=== PATIENT | female | born 1940 | race Caucasian/White ===

== ENCOUNTER 2016-11-23 10:22 | Emergency (ER) | payer OTHER ==
[2016-11-23 10:28] VITALS: TEMP 98; BMI 29.0
--- NOTE | 2016-11-23 11:39 | PDOC ---
History of Present Illness - General History Source: Patient, Old Records Exam Limitations: No Limitations <Odessa Samayoa - Last Filed: 11/23/16 15:17> - History of Present Illness Initial Comments: 11/23/16 12:43 Patient is a 76 year old female significant medical hx of HTN and nephrolithiasis who is presenting to the ED with left lower extremity pain since yesterday. Patient reports shes been doing a lot of bending and lifting due to home renovations. She complains of leg pain located to the posterior knee and calf that is non-radiating. The patient states that her pain worsened when she got up to walk in the middle of the night and since has had difficulty walking on her left leg. The patient's pain relieves at rest. Patient denies history of blood clots. Denies chest pain, shortness of breath, and lower extremity swelling. <Sarah Monson - Last Filed: 11/23/16 15:30> - General Chief Complaint: Pain Stated Complaint: PAIN Time Seen by Provider: 11/23/16 10:37 Past History - Past Medical History Anemia: No Asthma: No Cancer: No Cardiac Disorders: No CVA: No COPD: No CHF: No Dementia: No Diabetes: No GI Disorders: No Disorders: Yes (H/O KIDNEY STONES) HTN: Yes Hypercholesterolemia: No Liver Disease: No Seizures: No Thyroid Disease: No - Surgical History Abdominal Surgery: No Appendectomy: No Cardiac Surgery: No Cholecystectomy: No Lung Surgery: No Neurologic Surgery: No Orthopedic Surgery: No - Psycho/Social/Smoking Cessation Hx Suicidal Ideation: No Smoking History: Never smoked Have you smoked in the past 12 months: No Information on smoking cessation initiated: No Hx Alcohol Use: No Drug/Substance Use Hx: No Substance Use Type: None Hx Substance Use Treatment: No <Odessa Samayoa - Last Filed: 11/23/16 15:17> <Sarah Monson - Last Filed: 11/23/16 15:30> - Past Medical History Allergies/Adverse Reactions: Allergies Allergy/AdvReac Type Severity Reaction Status Date / Time Penicillins Allergy Intermediate Rash Verified 03/22/15 12:54 Home Medications: Ambulatory Orders Diltiazem Cd [Cardizem Cd -] 240 mg PO DAILY 12/20/14 Review of Systems - Review of Systems Comments:: 11/23/16 12:45 GENERAL/CONSTITUTIONAL: No fever or chills. No weakness. HEAD, EYES, EARS, NOSE AND THROAT: No change in vision. No ear pain or discharge. No sore throat. CARDIOVASCULAR: No chest pain or shortness of breath. RESPIRATORY: No cough, wheezing, or hemoptysis. GASTROINTESTINAL: No nausea, vomiting, diarrhea or constipation. GENITOURINARY: No dysuria, frequency, or change in urination. MUSCULOSKELETAL: No joint or muscle swelling or pain. No neck or back pain. EXTREMITIES: Posterior left leg pain. No edema. SKIN: No rash NEUROLOGIC: No headache, vertigo, loss of consciousness, or change in strength/ sensation. <Sarah Monson - Last Filed: 11/23/16 15:30> *Physical Exam - Vital Signs Last Vital Signs Temp Pulse Resp BP Pulse Ox 98 F 80 18 157/75 98 11/23/16 10:27 11/23/16 10:27 11/23/16 10:11/23/16 10:27 11/23/16 10:27 <Odessa Samayoa - Last Filed: 11/23/16 15:17> - Vital Signs Last Vital Signs Temp Pulse Resp BP Pulse Ox 98 F 80 18 157/75 98 11/23/16 10:27 11/23/16 10:27 11/23/16 10:27 11/23/16 10:11/23/16 10:27 - Physical Exam Comments: 11/23/16 12:45 GENERAL: Awake, alert, and fully oriented, in no acute distress HEAD: No signs of trauma EYES: PERRLA, EOMI, sclera anicteric, conjunctiva clear ENT: Auricles normal inspection, hearing grossly normal, nares patent, oropharynx clear without exudates. Moist mucosa NECK: Normal ROM, supple, no lymphadenopathy, JVD, or masses LUNGS: Breath sounds equal, clear to auscultation bilaterally. No wheezes, and no crackles HEART: Regular rate and rhythm, normal S1 and S2, no murmurs, rubs or gallops ABDOMEN: Soft, nontender, normoactive bowel sounds. No guarding, no rebound. No masses EXTREMITIES: Tenderness of the lateral aspect left calf posterior calf, with no gross bony deformities. Normal range of motion, no edema. No clubbing or cyanosis. No cords or erythema NEUROLOGICAL: Cranial nerves II through XII grossly intact. Normal speech, normal gait SKIN: Warm, Dry, normal turgor, no rashes or lesions noted. ENDOCRINE: No increased thirst. No abnormal weight change. HEMATOLOGIC/LYMPHATIC: No anemia, easy bleeding, or history of blood clots. ALLERGIC/IMMUNOLOGIC: No hives or skin allergy. <Sarah Monson - Last Filed: 11/23/16 15:30> ED Treatment Course - RADIOLOGY Radiograph Interpretation: 11/23/16 12:49 Vascular Study Impression: No evidence of acute DVT. Reported By: Antonio Valles MD 11/23/16 15:24 Tibia/Fibula X-Ray AP and lateral views reveal extensive calcaneal spurring, other degenerative changes about the fifth ankle and foot, no sign of a gross fracture or subluxation and intact mortise. The proximal tibia and fibula are seen on the knee films and appear intact with degenerative changes. In the lateral view, there is posterior calcification by the fibula which most likely is vascular. Correlation recommended. If symptoms persist, further imaging and orthopedic consultation may be of help. Reported By: Sidney Hoffman MD Knee X-Ray Impression: Loss of bone density. Degenerative changes. Vascular calcifications. Reported By: Sidney Hoffman MD <Sarah Monson - Last Filed: 11/23/16 15:30> Medical Decision Making - Medical Decision Making 11/23/16 12:07 76-year-old female with history of hypertension who presents to the emergency department with 2 day history of progressively worsening left calf pain. Differential diagnosis includes but is not limited to: DVT, Bailey's cyst, arthritis, tendinitis. Plan: 1. Left lower extremity ultrasound/duplex 2. Pain management 3. Observe and reevaluate 11/23/16 15:17 Addendum: The lower extremity ultrasound is negative for DVT. Plain films of the knee and the tib-fib are negative for acute fracture. There are vascular calcifications. I've explained the results of all of the studies to the patient. I've advised the patient to apply ice to the area that hurts and take Tylenol or Motrin as needed for the pain. I've also advised the patient to follow-up with her primary care physician and return to the emergency department if her symptoms persist, worsen, or new symptoms arise. <Odessa Samayoa - Last Filed: 11/23/16 15:17> *DC/Admit/Observation/Transfer - Discharge Dispostion Admit: No - Attestations Physician Attestion: 11/23/16 12:07 I, Dr. Odessa Samayoa, attest that the scribes documentation that appears above has been prepared under my direction and personally reviewed by me in its entirety. I confirmed that the note above accurately reflects all work, treatment, procedures, and medical decision-making performed by me. <Odessa Samayoa - Last Filed: 11/23/16 15:17> - Attestations Scribe Attestion: 11/23/16 12:49 Documentation prepared by Sarah Monson, acting as medical accountant for Odessa Samayoa MD. <Sarah Monson - Last Filed: 11/23/16 15:30> Diagnosis at time of Disposition: Leg pain, posterior - Discharge Dispostion Disposition: HOME Condition at time of disposition: Stable - Referrals Referrals: María Elena Torres MD [Primary Care Provider] - - Patient Instructions Printed Discharge Instructions: DI for Leg Pain Additional Instructions: You have had an ultrasound of your left lower extremity that was negative for blood clot. You have had plain films of your left knee and left tibia/fibula which were negative for acute fracture. You may take Tylenol or Motrin as needed for the pain. Please follow-up with your primary care physician within the next week and return to the emergency department if your symptoms persist, worsen, or new symptoms arise.
[2016-11-23] MEDS ORDERED: IBUPROFEN 400 MG TABLET (FP) PO ONE ×2 (12:08→12:23)
[2016-11-23 15:44] VITALS: BP 151/78; PULSE 71
== END 2016-11-23 15:44 | disposition home or self-care (01) ==
LOC: JER 10:22
DX: M79.662 Pain in left lower leg (principal); I10 Essential (primary) hypertension; N20.0 Calculus of kidney; M77.32 Calcaneal spur, left foot
CPT/HCPCS: 73560-TC-LT; 73590-TC-LT; 93971-TC; 99282-25

== ENCOUNTER 2017-04-04 16:23 | Emergency (ER) | payer OTHER ==
--- NOTE | 2017-04-04 16:25 | PDOC ---
History of Present Illness - General History Source: Patient Exam Limitations: No Limitations - History of Present Illness Initial Comments: 04/04/17 16:44 Patient is a 77 year old female significant medical hx of HTN, nephrolithiasis, and osteoarthritis in the both knees, who is presenting to the ED with sudden onset of left non-radiating knee pain. Patient describes knee pain as sharp. She states she is unable to put any weight on it without experiencing the pain, but denies any pain when her leg is at rest. She denies numbness/tingling to the knee. She states she had 800 mg of ibuprofen earlier today with little to no alleviation. Patient denies any trauma. Patient denies fever, chills, nausea, vomiting, diarrhea. Patient is ambulatory and walked in to the ED today without any assistance. <Aren Jimenez - Last Filed: 04/04/17 16:48> - General History Source: Patient Exam Limitations: No Limitations <Imelda Cook - Last Filed: 04/04/17 18:01> - General Chief Complaint: Pain Stated Complaint: LEFT KNEE PAIN Time Seen by Provider: 04/04/17 16:24 Past History <Aren Jimenez - Last Filed: 04/04/17 16:48> - Past Medical History Anemia: No Asthma: No Cancer: No Cardiac Disorders: No CVA: No COPD: No CHF: No Dementia: No Diabetes: No GI Disorders: No Disorders: Yes (H/O KIDNEY STONES) HTN: Yes Hypercholesterolemia: No Liver Disease: No Seizures: No Thyroid Disease: No - Surgical History Abdominal Surgery: No Appendectomy: No Cardiac Surgery: No Cholecystectomy: No Lung Surgery: No Neurologic Surgery: No Orthopedic Surgery: No - Psycho/Social/Smoking Cessation Hx Suicidal Ideation: No Smoking History: Never smoked Have you smoked in the past 12 months: No Hx Alcohol Use: No Drug/Substance Use Hx: No Substance Use Type: None Hx Substance Use Treatment: No <Imelda Cook - Last Filed: 04/04/17 18:01> - Past Medical History Allergies/Adverse Reactions: Allergies Allergy/AdvReac Type Severity Reaction Status Date / Time Penicillins Allergy Intermediate Rash Verified 04/04/17 16:38 Home Medications: Ambulatory Orders Diltiazem Cd [Cardizem Cd -] 240 mg PO DAILY 12/20/14 Ibuprofen 800 mg PO TID PRN 04/04/17 Lidocaine 5% Patch [Lidoderm Patch -] 1 patch TP DAILY PRN #30 patch 04/04/17 Tramadol HCl [Ultram] 25 mg PO Q8H PRN #15 tablet MDD 1.5 04/04/17 Review of Systems - Review of Systems Able to Perform ROS?: Yes Comments:: 04/04/17 16:44 GENERAL/CONSTITUTIONAL: No: fever, chills, weakness, loss of appetite. HEAD, EYES, EARS, NOSE AND THROAT: No: change in vision, ear pain, discharge, sore throat, throat swelling. CARDIOVASCULAR: No: chest pain, lightheadedness, palpitations, syncope RESPIRATORY: No: cough, shortness of breath, wheezing, hemoptysis, stridor. GASTROINTESTINAL: No: nausea, vomiting, abdominal cramping, diarrhea, rectal bleeding, constipation. GENITOURINARY: No: dysuria, hematuria, frequency, urgency, flank pain. MUSCULOSKELETAL: + left knee pain. No: back pain, neck pain, muscle swelling or pain SKIN AND BREASTS: No: lesions, pallor, rash or easy bruising. NEUROLOGIC: No: headache, vertigo, paresthesias, weakness ENDOCRINE: No: unexplained weight gain or loss HEMATOLOGIC/LYMPHATIC: No: anemia, easy bleeding, swelling nodes <Aren Jimenez - Last Filed: 04/04/17 16:48> *Physical Exam - Vital Signs Last Vital Signs Temp Pulse Resp BP Pulse Ox 98.1 F 78 16 186/79 99 04/04/17 16:24 04/04/17 16:24 04/04/17 16:24 04/04/17 16:24 04/04/17 16:24 - Physical Exam Comments: 04/04/17 16:44 GENERAL: The patient is in no acute distress. HEAD: Normal with no signs of trauma. EYES: PERRLA, EOMI, sclera anicteric, conjunctiva clear. ENT: Ears normal, nares patent, oropharynx clear without exudates. Moist mucous membranes. NECK: Normal range of motion, supple without lymphadenopathy, JVD, or masses. LUNGS: Breath sounds equal, clear to auscultation bilaterally. No wheezes, and no crackles. HEART:Regular rate and rhythm, normal S1 and S2 without murmur, rub or gallop. ABDOMEN: Soft, nontender, normoactive bowel sounds. No guarding, no rebound. EXTREMITIES: Normal range of motion, no edema. No clubbing or cyanosis. No erythema, or tenderness. NEUROLOGICAL: Cranial nerves II through XII grossly intact. Normal speech. No focal neurological deficits. MUSCULOSKELETAL: Back non-tender to palpation, no CVA tenderness SKIN: Warm, Dry, normal turgor, no rashes or lesions noted. <Aren Jimenez - Last Filed: 04/04/17 16:48> Medical Decision Making - Medical Decision Making 04/04/17 16:25 A portion of this note was documented by scribe services under my direction. I have reviewed the details of the note, within reason, and agree with the documentation with the following case summary and management plan written by me. Nursing documentation reviewed and incorporated into medical decision making 04/04/17 17:22 This is a 77 yo F h/o HTN, Osteoarthritis who presents to the ER with a complaint of left knee pain She noticed that as she went up and down the stairs in her home, she noted knee pain Today, she noted severe left knee pain when she climbed up the stairs No falls No direct knee trauma No erythema Minimal swelling of the left knee 04/04/17 17:54 Pt is concerned that there might be a subtle fracture Will do x ray 04/04/17 17:55 Pt does not want narcotic pain medications because they make her see strange things in dreams Knee x ray demonstrates severe arthritis No acute fracture seen Will: Discharge to home ask pt to follow up with Dr Kohler (she has an appointment on Friday already) Will discharge on m Will ask pt to take only 1/2 of this tab every 8 hours as needed for pain Clinical Impression: Severe arthritis <Imelda Cook - Last Filed: 04/04/17 18:01> *DC/Admit/Observation/Transfer - Attestations Scribe Attestion: 04/04/17 16:44 Documentation prepared by Aren Jimenez, acting as ophthalmic medical assistant for Imelda Cook MD. <Aren Jimenez - Last Filed: 04/04/17 16:48> - Discharge Dispostion Admit: No <Imelda Cook - Last Filed: 04/04/17 18:01> Diagnosis at time of Disposition: Arthritis of knee, left - Discharge Dispostion Disposition: HOME Condition at time of disposition: Stable - Prescriptions Prescriptions: Lidocaine 5% Patch [Lidoderm Patch -] 1 patch TP DAILY PRN #30 patch PRN Reason: Pain Tramadol HCl [Ultram] 25 mg PO Q8H PRN #15 tablet MDD 1.5 PRN Reason: Pain - Referrals Referrals: María Elena Torres MD [Primary Care Provider] - Rehan Kohler MD [Staff Physician] - - Patient Instructions Printed Discharge Instructions: DI for Arthritis, Osteoarthritis (Alternative Therapy) Additional Instructions: Thank you for coming in to the ER today Please take medications as prescribed and monitor for confusion/vivid dreams Please keep your follow up with Dr Kohler Return to the ER if you have any other concerns or complaints
[2017-04-04 16:42] VITALS: PULSE 78; TEMP 98.1; BMI 26.6
[2017-04-04 17:01] VITALS: BP 192/76
== END 2017-04-04 18:34 | disposition home or self-care (01) ==
LOC: FER 16:23
DX: M17.12 Unilateral primary osteoarthritis, left knee (principal); I10 Essential (primary) hypertension
CPT/HCPCS: 73562-TC-LT; 99282-25

== ENCOUNTER 2017-07-04 09:21 | Day surgery (SDC) | payer OTHER ==
[2017-07-03 16:44] VITALS: BMI 27.4
[2017-07-04] MEDS ORDERED: ROPIVACAINE HCL 0.5% 30ML VIAL ONE (13:06)
[2017-07-04] MEDS ORDERED: DEXAMETHASONE SOD PHOSPHATE/PF 10 MG/ML SDV ONE (13:07)
[2017-07-04] MEDS ORDERED: MIDAZOLAM HCL 2 MG/2 ML SINGLE DOSE VIAL ONE (13:08)
[2017-07-04] MEDS ORDERED: LIDOCAINE HCL/PF 2% SDV 5ML VIAL ONE (13:08)
[2017-07-04] MEDS ORDERED: PROPOFOL 20 ML ONE ×2 (14:05→14:42)
[2017-07-04] MEDS ORDERED: CLINDAMYCIN 600 MG PREMIX BAG IVPB ONE (14:40)
[2017-07-04] MEDS ORDERED: LIDOCAINE HCL 1%, 10 MG/ML (20ML VIAL) INF ONE (14:59)
[2017-07-04] MEDS ORDERED: ONDANSETRON 4 MG/2 ML VIAL IVPUSH PRN (15:25)
[2017-07-04] MEDS ORDERED: oxyCODONE HCL 5 MG TABLET PO PRN (15:25)
[2017-07-04] MEDS ORDERED: LACTATED RINGERS SOLUTION 1,000 ML IV SCH (15:30)
[2017-07-04] MEDS ORDERED: ACETAMINOPHEN 325 MG TABLET (FP) ONE (16:36)
[2017-07-04] MEDS ORDERED: ACETAMINOPHEN 325 MG TABLET (FP) PO ONE (17:13)
[2017-07-04 19:01] VITALS: BP 150/90; PULSE 67
[2017-07-04 20:22] VITALS: TEMP 97.6
--- NOTE | 2017-07-05 19:23 | OP ---
DATE OF OPERATION: 07/04/2017 PREOPERATIVE DIAGNOSIS: Left breast cancer. POSTOPERATIVE DIAGNOSIS: Left breast cancer. PROCEDURE: Left breast lumpectomy and a sentinel lymph node biopsy with primary reconstruction. SURGEON: Karen Bean MD ANESTHESIA: Paravertebral block and general. ESTIMATED BLOOD LOSS: Minimal. COMPLICATIONS: None. DISPOSITION: Stable end of procedure. INDICATION FOR PROCEDURE: Patient presented with a palpable mass in the outer left breast. Mammogram and ultrasound showed a solid, irregular mass. She had a nasal biopsy to the 2 areas in the upper outer left breast, which showed an invasive carcinoma. It was ER/[place] positive. My recommendation was a lumpectomy. In the office, mastectomy was discussed as well. After discussion, decision was to go ahead with a lumpectomy and a sentinel node biopsy. The procedure was discussed with all of the questions answered. PROCEDURE IN DETAIL: The patient was brought to [facility] in [place] and first taken to nuclear medicine where a technetium and sulfur colloid was injected at the 2 o'clock areolar border by the radiologist. She was then brought up to the operating room. After a paravertebral block was done by the anesthesiologist in holding, she was taken into the operating room. After IV sedation and IV antibiotic, 4 mL of Isosulfan blue dye was injected into the left subaerolar plexus. The breast was then massaged for 5 minutes. The breast and axilla were then reprepped and redraped. A 4-cm incision was made in the left axilla, and I felt she could feel this; therefore, I am not sure the block was perfect. Therefore, this was converted to general anesthesia. A 4-cm incision was made in the left axilla and carried down to the clavipectoral fascia to identify a hot and blue sentinel node, which was sentinel node number 1 hot and blue. On further exploration of the left axilla, there was another lymph node that felt firm, and I took this as a left axillary nonsentinel node as there was no blue dye radioactivity within this. There was a 2nd sentinel node and a 3rd sentinel node as well that were hot and not blue in the left axilla. These were taken separately. There was no other blue dye radioactivity or pathologic feeling lymph nodes in the left axilla; therefore, next the left breast lumpectomy was performed. An ellipse of skin was taken over the mass that encompassed the left breast from the 2 o'clock to the 4 o'clock location from superior to inferior and the from the areolar border out approximately 8 cm to get the margins. An en bloc lumpectomy was performed tagged with a long stitch lateral, short stitch superior. Sent to pathology for permanent section. Grossly, I felt that was close medially; therefore, I took a new medial margin with a stitch at the old margin. This was all sent to Pathology for permanent section. Once hemostasis was assured, there was a large defect left from the lumpectomy. Therefore, a superior inferomedial flap was raised, and a tissue transfer procedure was performed to fill in the defect from the lumpectomy. This defect measured 12 cm by 6 cm. The parenchyma was approximated in 2 layers of interrupted 2-0 Vicryl, the skin approximated with interrupted 3-0 Vicryl and running 4-0 Prolene. The axillary incision was also closed in a routine fashion with interrupted 0 Vicryl and running 4-0 Prolene. A sterile dressing with Tegaderm and 4x4 was applied as well as a mammary binder. She tolerated the procedure well and was taken to recovery in good condition. Jen [id number] [id number]
--- NOTE | 2017-07-09 16:06 | PATH ---
Surgical Pathology Report Patient Name: SINCERE SIMMS [facility]. Rec. #: [id number] /Age/Gender: 1940 (Age: 77) / F Account: [id number] Location: [facility] SURGICAL Taken: 07/04/2017 Received: 07/07/2017 Reported: 07/09/2017 Physicians: Karen Bean M.D. Specimen(s) Received A: LEFT AXILLARY SENTINEL LYMPH NODE B: LEFT AXILLARY NON-SENTINEL NODE C: LEFT AXILLARY SENTINEL LYMPH NODE D: LEFT AXILLARY SENTINEL LYMPH NODE E: LEFT BREAST LUMPECTOMY F: LEFT BREAST NEW MDEDIAL MARGIN Clinical History Invasive Final Diagnosis A. SENTINEL LYMPH NODE #1, LEFT AXILLARY, BIOPSY: ONE OF TWO LYMPH NODES POSITIVE FOR METASTATIC CARCINOMA (1/2); LYMPHATIC EMBOLI PRESENT. SIZE OF THE LARGEST TUMOR DEPOSIT: 0.7 CM. EXTRANODAL EXTENSIONS: PRESENT. Comment: Immunohistochemical stain for Ae1/Ae2 keratin performed and interpreted as [facility] on block A3 highlights endolymphatic carcinoma. B. NON-SENTINEL LYMPH NODES, LEFT AXILLARY, LYMPHADENECTOMY: ONE OF FOUR LYMPH NODES POSITIVE FOR METASTATIC CARCINOMA (1/4); LYMPHATIC EMBOLI PRESENT. SIZE OF THE LARGEST TUMOR DEPOSIT: 0.7 CM. EXTRANODAL EXTENSIONS: PRESENT. C. SENTINEL LYMPH NODE #2, LEFT AXILLARY, BIOPSY: ONE LYMPH NODE NEGATIVE FOR METASTATIC CARCINOMA BY H&E STAIN (0/1). D. SENTINEL LYMPH NODE #3, LEFT AXILLARY, BIOPSY: ONE LYMPH NODE NEGATIVE FOR METASTATIC CARCINOMA BY H&E STAIN (0/1). E. BREAST, LEFT, LUMPECTOMY: INVASIVE DUCTAL CARCINOMA, MODERATELY DIFFERENTIATED, WITH FOCAL MICROPAPILLARY MUCINOUS FEATURES AND FOCAL AREA OF SOLID PAPILLARY CARCINOMA (MOE HISTOLOGIC SCORE OF 7: TUBULE FORMATION 3 OF 3, NUCLEAR PLEOMORPHISM 2 OF 2, MITOTIC RATE 2 OF 3). INVASIVE CARCINOMA SIZE AND FOCALITY: MAIN FOCUS, 2.8 CM (GROSS MEASUREMENT), ADDITIONAL 0.5 CM FOCUS, MICROINVASIVE SATELLITE FOCI (<1 MM) AND FOCI OF LYMPHATIC SPREAD. EXTENSIVE DUCTAL CARCINOMA IN SITU (DCIS), INTERMEDIATE NUCLEAR GRADE, SOLID AND PAPILLARY TYPES, WITH CENTRAL NECROSIS. DCIS EXTENT: DCIS IS MAJOR (>25%), PRESENT IN ASSOCIATION WITH INVASIVE CARCINOMA AND FOCALLY AWAY FROM IT. SURGICAL RESECTION MARGINS: DCIS ABUTS INFERIOR AND LATERAL RESECTION MARGINS, < 1MM FROM THE SUPERIOR MARGIN AND 1.5 MM FROM THE DEEP MARGIN; MARGINS ARE NEGATIVE FOR INVASIVE CARCINOMA; INVASIVE CARCINOMA IS 1 MM FROM THE MEDIAL ASPECT OF THE SPECIMEN (REFER TO PART F FOR THE FINAL MEDIAL MARGIN) AND 3 MM FROM THE LATERAL MARGIN. LYMPHOVASCULAR INVASION: PRESENT. PERINEURAL INVASION: NOT DEFINITIVELY IDENTIFIED. SKIN: NOT INVOLVED BY CARCINOMA. SURROUNDING BREAST TISSUE: FOCI OF FIBROCYSTIC CHANGE WITH DUCT DILATATION, FOCAL APOCRINE METAPLASIA AND STROMAL FIBROSIS. PATHOLOGIC STAGING: mpT2 pN1a (ALSO REFER TO CHECKLIST BELOW). RECEPTOR STUDIES: REFER TO CHECKLIST BELOW. F. BREAST, LEFT, NEW MEDIAL MARGIN, EXCISION: SMALL INTRADUCTAL PAPILLOMA WITH USUAL DUCTAL HYPERPLASIA; FIBROCYSTIC CHANGE WITH FOCAL USUAL DUCTAL HYPERPLASIA, APOCRINE METAPLASIA, DUCT DILATATION AND STROMAL FIBROSIS WITH FOCAL ASSOCIATED MICROCALCIFICATIONS. NEGATIVE FOR INVASIVE CARCINOMA OR DCIS. Comments Breast Invasive Carcinoma: Surgical Pathology Cancer Case Summary Based on AJCC/UICC TNM, 7th edition Procedure _x_ Excision without image-guided localization Lymph Node Sampling _x_ [place] and non-sentinel lymph nodes Specimen Laterality _x_ Left Tumor Size: Size of Largest Invasive Carcinoma Greatest dimension of largest focus of invasion over 1 mm: 2.8 cm (28 mm) Tumor Focality _x_ Multiple foci of invasive carcinoma Number of foci: >3 Sizes of individual foci: 2.8 cm, 0.5 cm, additional microinvasive satellite foci (<1mm) and foci of lymphatic spread Macroscopic and Microscopic Extent of Tumor Skin _x_ Invasive carcinoma does not invade into the dermis or epidermis Nipple _x_ Not applicable (excisions less than total mastectomy) Skeletal Muscle _x_ No skeletal muscle present Ductal Carcinoma In Situ (DCIS) _x_ DCIS is present _x_ as a major component (>25% of tumor, extensive intraductal component) Histologic Type of Invasive Carcinoma: Invasive ductal carcinoma with focal micropapillary mucinous features and focal area of solid papillary carcinoma Histologic Grade: ([place] Histologic Score) Tubular Differentiation _x_ Score 3 Nuclear Pleomorphism _x_ Score 2 Mitotic Rate _x_ Score 2 Overall Grade _x_ Grade 2: scores of 7 (moderately differentiated) Margins _x_ Margins uninvolved by invasive carcinoma Distance from closest margin: 3.0 mm Specify margin: lateral _x_ Margin(s) positive for DCIS: inferior and lateral _x_ Margin(s) close to (< 1 mm) DCIS: superior Lymph-Vascular Invasion _x_ Present Lymph Nodes Total number of lymph nodes examined (sentinel and nonsentinel): 8 Number of sentinel lymph nodes examined: 4 Number of lymph nodes with macrometastases (> 2 mm): 2 Number of lymph nodes with micrometastases (>0.2 mm to 2 mm and/or >200cells):0 Number of lymph nodes with isolated tumor cells (=0.2 mm and =200 cells): 0 Size of largest metastatic deposit (if present): 0.7 cm Extranodal Extension _x_ Present Pathologic Staging (pTNM) Primary Tumor (Invasive Carcinoma): mpT2 Regional Lymph Nodes (pN): pN1a Distant Metastasis (pM): not applicable Biomarker Studies Results of ER and KY studies performed on prior biopsy ([id number]) blocks A and B at [facility] are as follows: ER (clone [id number] mouse monoclonal antibody by [employer]): >95% nuclear staining with strong to moderate intensity (Positive). KY (clone16 mouse monoclonal antibody by [employer]):~75%(block A) and >90%(block B) nuclear staining with strong to moderate intensity (Positive). Results of Her2 (IHC) & Ki-67 studies performed on prior biopsy ([id number], blocks A and B) at [place], [place] ([id number]) are as follows: Her2 IHC (EP3 from [employer], formerly known as [id number], using [employer] Refine detection kit): 0 (Negative) Ki67: up to 10% (Low proliferative index) Positive and negative controls (internal if applicable) showed appropriate results. Formalin fixation and cold ischemic times were within current ASCO/CAP recommendations for ER, KY and Her2 testing. Electronically Signed Isaiah Grace M.D. Gross Description A. Received in formalin labeled "left axillary sentinel lymph node #1" is a 4.5 x 3.5 x 1.8 cm aggregate of yellow, lobulated adipose tissue. Sectioning reveals 2 guthrie, irregular lymph nodes measuring 0.9 x 0.6 x 0.5 cm and 2.8 x 1.4 x 0.6 cm. The lymph nodes are bisected and entirely submitted in 3 cassettes as follows: 1-one bisected lymph node; 2-3-one bisected lymph node. B. Received in formalin labeled "left axillary non-sentinel node" is a 4.5 x 2.5 x 1.0 cm aggregate of yellow, lobulated adipose tissue. Sectioning reveals 4 guthrie, irregular lymph nodes ranging from 0.5-1.0 cm in greatest dimension. The largest lymph node is bisected and the specimens are submitted in 4 cassettes as follows: 1-3-one whole lymph node each; 4-one bisected lymph node. C. Received in formalin labeled "left axillary sentinel lymph node #2" is a 1.0 x 0.5 x 0.4 cm guthrie, irregular lymph node with attached fat. The lymph node is bisected and entirely submitted in one cassette. D. Received in formalin labeled "left axillary sentinel lymph node #3" is a 1.2 x 0.4 x 0.3 cm guthrie, irregular lymph node with attached fat. The lymph node is submitted in toto in one cassette. E. Received in formalin, labeled "left breast lumpectomy" is a 8.0 x 6.2 x 4.7 cm. guthrie-yellow, irregular, portion of fibroadipose tissue. There is no needle localization wire present. There is a short suture marking the superior aspect and a long suture marking the lateral aspect, per the surgeon. The anterior surface displays an 8.0 x 2.2 cm guthrie, elliptical, unremarkable portion of skin. The specimen is inked as follows: Superior blue; inferior green; lateral red; medial yellow; deep black. The specimen is serially sectioned from medial to lateral. Sectioning reveals a 2.8 x 1.8 x 1.7 cm guthrie, indurated, ill-defined mass at 0.8 cm from the medial margin and 1.0 cm from the inferior margin. The mass is surrounded by a 3.8 cm in greatest dimension area of scattered guthrie-white firm foci which approach the inferior and lateral margins. [employer] sections are submitted in 13 cassettes as follows: 1-2-one bisected section of mass; 3-mass with inferior margin; 4-5-medial margin; 6-mass with surrounding scattered fibrous tissue; 7-4-ekzfywgktg inferior margin; 3-02-oskyshg margin; 11-superior margin; 12-deep margin; 13-skin. Time to fixation: <1h Total formalin fixation time:~ 74h F. Received in formalin labeled "left breast new medial margin" is a 4.5 x 1.5 x 1.6 cm irregular portion of fibroadipose tissue with a suture marking the old margin, per the surgeon. The new margin is inked blue and the specimen is serially sectioned. The specimen is entirely and sequentially submitted in 7 cassettes. 07/07/2017 [facility]07/07/2017
== END 2017-07-04 18:45 | disposition home or self-care (01) ==
LOC: JRADNM 09:21 → JASU-SURG 09:21
PROVIDERS: ATTEND Surgery
PROC: C71L1ZZ Planar Nuclear Medicine Imaging of Upper Chest Lymphatics using Technetium 99m (Tc-99m) (ICD-10-PCS; 2017-07-04)
PROC: 0HBU0ZZ Excision of Left Breast, Open Approach (ICD-10-PCS; principal; 2017-07-04 13:00)
PROC: 07B60ZX Excision of Left Axillary Lymphatic, Open Approach, Diagnostic (ICD-10-PCS; 2017-07-04 13:00)
DX: C50.912 Malignant neoplasm of unspecified site of left female breast (principal)
CPT/HCPCS: 88307-TC; 88342-TC; 94760; A9541

== ENCOUNTER 2017-07-29 11:26 | Day surgery (SDC) | payer OTHER ==
[2017-07-28 08:47] VITALS: BMI 27.4
[2017-07-29] MEDS ORDERED: MIDAZOLAM HCL 2 MG/2 ML SINGLE DOSE VIAL ONE (15:12)
[2017-07-29] MEDS ORDERED: PROPOFOL 20 ML ONE (15:12)
[2017-07-29] MEDS ORDERED: DEXAMETHASONE SOD PHOSPHATE 4 MG/1 ML VIAL ONE (15:12)
[2017-07-29] MEDS ORDERED: LIDOCAINE HCL 1%, 10 MG/ML (20ML VIAL) ONE (15:20)
[2017-07-29] MEDS ORDERED: ceFAZolin SODIUM 1 GM VIAL IVPB ONE (15:37)
[2017-07-29] MEDS ORDERED: LIDOCAINE HCL 1%, 10 MG/ML (20ML VIAL) INF ONE (15:40)
[2017-07-29] MEDS ORDERED: ceFAZolin SODIUM 1 GM VIAL ONE (15:47)
[2017-07-29 16:51] VITALS: TEMP 97.8
[2017-07-29] MEDS ORDERED: PROMETHAZINE HCL 25 MG/1 ML VIAL IVPUSH PRN (17:13)
[2017-07-29] MEDS ORDERED: ONDANSETRON 4 MG/2 ML VIAL IVPUSH PRN (17:13)
[2017-07-29] MEDS ORDERED: oxyCODONE HCL 5 MG TABLET PO PRN (17:13)
[2017-07-29] MEDS ORDERED: LACTATED RINGERS SOLUTION 1,000 ML IV SCH (17:15)
--- NOTE | 2017-07-29 17:19 | OP ---
DATE OF OPERATION: 07/29/2017 PREOPERATIVE DIAGNOSIS: Left breast cancer. POSTOPERATIVE DIAGNOSIS: Left breast cancer. PROCEDURE: Left breast re-excision lumpectomy. SURGEON: Karen Bean MD ANESTHESIA: General. ESTIMATED BLOOD LOSS: Minimal. COMPLICATIONS: None. This was a sterile procedure. INDICATION FOR PROCEDURE: Patient had a left lumpectomy and sentinel node biopsy. The lumpectomy showed 3 involved margins and 1 close margin on the DCIS, inferiorly, laterally, and superiorly. My recommendation was re-excision. The procedure was discussed with her, and all the questions answered. PROCEDURE IN DETAIL: Patient was brought to [facility] and taken into the operating room, and after induction of general anesthesia and IV antibiotics, the left breast was prepped and draped in the usual sterile fashion. The area in the outer left breast was anesthetized with 1% lidocaine without epinephrine. The prior incision was sharply reopened, and the lumpectomy cavity was entered. A new inferior margin was taken with a stitch at the new margin. Next, a new lateral margin was taken with a stitch at the old margin, and lastly, a new superior margin was taken with a stitch at the old margin. These were all sent to Pathology for permanent section. Hemostasis was assured with electrocautery. The parenchyma approximated with interrupted 2-0 Vicryl in 2 layers. The skin approximated with interrupted 0 Vicryl running, 4-0 Biosyn. A sterile dressing of a Tegaderm, 4 x 4's applied, as well as a mammary binder. The patient tolerated the procedure well, was extubated on the operating room table, taken to recovery in good condition. Jen [id number]
[2017-07-29 18:57] VITALS: BP 172/77; PULSE 67
--- NOTE | 2017-08-05 09:13 | PATH ---
Surgical Pathology Report Patient Name: SINCERE SIMMS [facility]. Rec. #: [id number] /Age/Gender: 1940 (Age: 77) / F Account: [id number] Location: [facility] SURGICAL Taken: 07/29/2017 Received: 07/30/2017 Reported: 08/05/2017 Physicians: Karen Bean M.D. Specimen(s) Received A: LEFT BREAST NEW INFERIOR MARGIN STITCH JENNIFER NEW MARGIN B: LEFT BREAST NEW LATERAL MARGIN STITCH MARLS OLD MARGIN C: LEFT BREAST NEW SUPERIOR MARGIN STITCH HULL OLD MARGIN Clinical History Invasive Final Diagnosis A. LEFT BREAST, NEW INFERIOR MARGIN, EXCISION: DUCTAL CARCINOMA IN SITU OF (DCIS), INTERMEDIATE NUCLEAR GRADE, SOLID PATTERN. DCIS MEASURES AT LEAST 5 MM IN GREATEST DIMENSION, AND IS PRESENT IN 3 OF 10 SUBMITTED BLOCKS (3/10). DCIS IS LESS THAN 1 MM FROM THE INKED MARGIN OF EXCISION. FAT NECROSIS, FIBROSIS, FOREIGN BODY REACTION, AND SUTURE GRANULOMA PRESENT CONSISTENT WITH PRIOR EXCISION SITE. REMAINING BREAST TISSUE WITH FIBROCYSTIC CHANGES INCLUDING COLUMNAR CELL CHANGE, STROMAL FIBROSIS, AND DUCTAL DILATATION. B. LEFT BREAST, NEW LATERAL MARGIN, EXCISION: DUCTAL CARCINOMA IN SITU OF (DCIS), INTERMEDIATE NUCLEAR GRADE, SOLID PATTERN. DCIS MEASURES AT LEAST 5 MM IN GREATEST DIMENSION, AND IS PRESENT IN 2 OF 13 SUBMITTED BLOCKS (2/13). DCIS IS LESS THAN 1 MM FROM THE INKED MARGIN OF EXCISION. FAT NECROSIS, FIBROSIS, FOREIGN BODY REACTION, AND SUTURE GRANULOMA PRESENT CONSISTENT WITH PRIOR EXCISION SITE. C. LEFT BREAST, NEW SUPERIOR MARGIN, EXCISION: DUCTAL CARCINOMA IN SITU OF (DCIS), INTERMEDIATE NUCLEAR GRADE, SOLID PATTERN. DCIS MEASURES 5 MM IN GREATEST DIMENSION, AND IS PRESENT IN ONE OF 8 SUBMITTED BLOCKS (1/8). DCIS IS 6 MM FROM THE INKED MARGIN OF EXCISION. FAT NECROSIS, FIBROSIS, FOREIGN BODY REACTION, AND SUTURE GRANULOMA PRESENT CONSISTENT WITH PRIOR EXCISION SITE. Comment: Also see prior specimens [id number] and [id number]. Electronically Signed Tucker Wang M.D. Gross Description A. Received in formalin labeled "left breast new inferior margin," is a 5.0 x 3.1 x 0.8 cm irregular, unoriented portion of fibroadipose tissue with a suture marking the new margin, per the surgeon. The new margin is inked blue and the specimen is serially sectioned. The specimen is entirely and sequentially submitted in 10 cassettes. B. Received in formalin labeled "left breast new lateral margin," is a 4.0 x 3.7 x 1.5 cm irregular portion of fibroadipose tissue with a suture marking the old margin, per the surgeon. The new margin is inked blue and the specimen is serially sectioned. The specimen is entirely and sequentially submitted in 13 cassettes (one bisected section each in cassettes 4/5, 6/7, 8/, 07/30). C. Received in formalin labeled "left breast new superior margin," is a 4.0 x 2.2 x 1.3 cm irregular portion of fibroadipose tissue with a suture marking the old margin, per the surgeon. The new margin is inked blue and the specimen is serially sectioned. The specimen is entirely and sequentially submitted in 8 cassettes. Time to formalin fixation: 1 minute Total formalin fixation time: Approximately 26 hours. 07/30/2017 [place]07/30/2017
== END 2017-07-29 18:57 | disposition home or self-care (01) ==
LOC: JASU-SURG 11:26
PROVIDERS: ATTEND Surgery
PROC: 0HBU0ZZ Excision of Left Breast, Open Approach (ICD-10-PCS; principal; 2017-07-29 13:00)
DX: C50.912 Malignant neoplasm of unspecified site of left female breast (principal)
CPT/HCPCS: 88307-TC; 94760

== ENCOUNTER 2018-01-19 23:26 | Observation (INO) | payer OTHER ==
--- NOTE | 2018-01-19 23:56 | PDOC ---
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 Patient reports gradual onset of intermittent midsternal chest pain, pressure like, radiating to the back with associated nausea. Despite pain, patient reports coming to work and experienced pain. Patient denies Patient denies palpitations, shortness of breath, diaphoresis, dizziness. Patient denies fever, chills, abdominal pain, vomit, diarrhea or constipation. Patient denies dysuria, frequency, urgency or hematuria. Patient denies sick contacts or recent travel. Allergies: Penicillins Past surgical history: Lumpectomy Social history: None PCP: Dr. Tien Castañeda Cards: Julian Ambrose <Madeleine Dewitt - Last Filed: 01/20/18 00:08> - General History Source: Patient Exam Limitations: No Limitations <Markel eBthea - Last Filed: 01/20/18 01:23> - General Stated Complaint: CHEST PAIN Time Seen by Provider: 01/19/18 23:30 Past History <Madeleine Dewitt - Last Filed: 01/20/18 00:08> - Past Medical History Anemia: No Asthma: No Cancer: No Cardiac Disorders: No CVA: No COPD: No CHF: No Dementia: No Diabetes: No GI Disorders: No Disorders: Yes (H/O KIDNEY STONES) HTN: Yes Hypercholesterolemia: No Liver Disease: No Seizures: No Thyroid Disease: No - Surgical History Abdominal Surgery: No Appendectomy: No Cardiac Surgery: No Cholecystectomy: No Lung Surgery: No Neurologic Surgery: No Orthopedic Surgery: No - Suicide/Smoking/Psychosocial Hx Smoking History: Never smoked Have you smoked in the past 12 months: No Hx Alcohol Use: No Drug/Substance Use Hx: No Substance Use Type: None Hx Substance Use Treatment: No <Markel Bethea - Last Filed: 01/20/18 01:23> - Past Medical History Allergies/Adverse Reactions: Allergies Allergy/AdvReac Type Severity Reaction Status Date / Time Penicillins Allergy Intermediate Rash Verified 07/29/17 12:09 "RESISTANT TO ASNESTHESIA" AdvReac Severe Uncoded 07/29/17 12:09 Home Medications: Ambulatory Orders Diltiazem Cd [Cardizem Cd -] 240 mg PO DAILY 12/20/14 Naproxen Sodium [Aleve] 220 mg PO PRN PRN 07/03/17 Review of Systems - Review of Systems Able to Perform ROS?: Yes Comments:: 01/19/18 23:57 GENERAL/CONSTITUTIONAL: No fever or chills. No weakness. HEAD, EYES, EARS, NOSE AND THROAT: No change in vision. No ear pain or discharge. No sore throat. CARDIOVASCULAR: +chest pain. No shortness of breath. RESPIRATORY: No cough, wheezing, or hemoptysis. GASTROINTESTINAL: +nausea. No vomiting, diarrhea or constipation. GENITOURINARY: No dysuria, frequency, or change in urination. MUSCULOSKELETAL: No joint or muscle swelling or pain. No neck or back pain. SKIN: No rash NEUROLOGIC: No headache, vertigo, loss of consciousness, or change in strength/ sensation. ENDOCRINE: No increased thirst. No abnormal weight change. HEMATOLOGIC/LYMPHATIC: No anemia, easy bleeding, or history of blood clots. ALLERGIC/IMMUNOLOGIC: No hives or skin allergy. <Madeleine Dewitt - Last Filed: 01/20/18 00:08> *Physical Exam - Physical Exam Comments: 01/19/18 23:58 GENERAL: Awake, alert, and fully oriented, in no acute distress HEAD: No signs of trauma EYES: PERRLA, EOMI, sclera anicteric, conjunctiva clear ENT: Auricles normal inspection, hearing grossly normal, nares patent, oropharynx clear without exudates. Moist mucosa NECK: Normal ROM, supple, no lymphadenopathy, JVD, or masses LUNGS: Breath sounds equal, clear to auscultation bilaterally. No wheezes, and no crackles HEART: +Systolic murmur. Regular rate and rhythm, normal S1 and S2, no rubs or gallops ABDOMEN: Soft, nontender, normoactive bowel sounds. No guarding, no rebound. No masses EXTREMITIES: Normal range of motion, no edema. No clubbing or cyanosis. No cords, erythema, or tenderness NEUROLOGICAL: Cranial nerves II through XII grossly intact. Normal speech, normal gait SKIN: Warm, Dry, normal turgor, no rashes or lesions noted. <Madeleine Dewitt - Last Filed: 01/20/18 00:08> Heart Score/ECG Review - History History: Moderately suspicious - Electrocardiogram EKG: Normal - Age Age: >/= 65 - Risk Factors Risk Factors Heart Score: Yes Hx Hypertension, Yes Hx Obesity Based on the list above the patient has:: 1-2 risk factors - Troponin Troponin: </= normal limit - Score Heart Score - Total: 4 #1 ECG reviewed & interpreted by me at: 23:55 01/20/18 00:53 NSR 77, no std/brandi, normal axis, normal intervals, QTC 437 msec <Markel Bethea - Last Filed: 01/20/18 01:23> ED Treatment Course - LABORATORY CBC & Chemistry Diagram: 01/19/18 23:50 01/19/18 23:50 <Madeleine Dewitt - Last Filed: 01/20/18 00:08> - LABORATORY CBC & Chemistry Diagram: 01/19/18 23:50 01/19/18 23:50 - RADIOLOGY Radiology Studies Ordered: Category Date Time Status CHEST X-RAY PORTABLE* [RAD] Stat Radiology 01/19/18 23:38 Ordered <Markel Bethea - Last Filed: 01/20/18 01:23> Medical Decision Making - Medical Decision Making 01/20/18 00:53 A portion of this note was documented by scribe services under my direction. I have reviewed the details of the note, within reason, and agree with the documentation with the following case summary and management plan written by me. Patient treated in the ED. Nursing notes are reviewed and incorporated into the medical decision-making. Vital signs reviewed. Peripheral IV access obtained by the nurse, laboratory studies are drawn and sent, reviewed and interpreted by myself. Vital Signs Temp Pulse Resp BP Pulse Ox 97.7 F 80 18 173/73 97 01/20/18 00:08 01/20/18 00:08 01/20/18 00:08 01/20/18 00:08 01/20/18 00:08 78-year-old female patient with history of hypertension, left-sided breast cancer status post lumpectomy in remission presents with chest pain. The patient reports that this morning she started feeling a vague midsternal chest pressure that radiated to the back. No fevers or chills. Denies shortness of breath. Denies exertional component. States that the pain has lasted throughout the day. She has an appointment for a routine outpatient stress test in 2 days. Patient's findings are concerning for rule out ID. The patient is minimal chest pain at this time. We'll obtain chest x-ray, labs and troponin admit the patient to the hospital. 01/20/18 01:22 CBC, BMP 01/19/18 23:50 01/19/18 23:50 CMP Sodium 138 mmol/L (136-145) 01/19/18 23:50 Potassium 3.9 mmol/L (3.5-5.1) 01/19/18 23:50 Chloride 104 mmol/L (98-107) 01/19/18 23:50 Carbon Dioxide 26 mmol/L (21-32) 01/19/18 23:50 Anion Gap 8 (8-16) 01/19/18 23:50 BUN 26 mg/dL (7-18) H 01/19/18 23:50 Creatinine 0.8 mg/dL (0.55-1.02) 01/19/18 23:50 Creat Clearance w eGFR > 60 (>60) 01/19/18 23:50 Random Glucose 111 mg/dL (74-106) H 01/19/18 23:50 Calcium 9.0 mg/dL (8.5-10.1) 01/19/18 23:50 Magnesium 1.9 mg/dL (1.8-2.4) 01/19/18 23:50 Total Bilirubin 0.4 mg/dL (0.2-1.0) 01/19/18 23:50 AST 10 U/L (15-37) L 01/19/18 23:50 ALT 14 U/L (12-78) 01/19/18 23:50 Alkaline Phosphatase 37 U/L (45-117) L 01/19/18 23:50 Creatine Kinase 34 IU/L (26-192) 01/19/18 23:50 Troponin I < 0.02 ng/ml (0.00-0.05) 01/19/18 23:50 Total Protein 7.3 g/dl (6.4-8.2) 01/19/18 23:50 Albumin 4.0 g/dl (3.4-5.0) 01/19/18 23:50 Lipase 121 U/L (73-393) 01/19/18 23:50 Chest xray reviewed by me, pending official radiology read. Enlarged heart. Pt reports that she had seen Dr. Garrison in the past. Will place consultation in for cardiology. Case discussed with Dr. servin who accepts patient for tele obs. Aspirin ordered. Case discussed in detail with admitting physician including history, physical exam and ancillary studies. Admitting physician has assumed care for the patient, will follow all pending diagnostics and will complete the evaluation and treatment. <Markel Bethea - Last Filed: 01/20/18 01:23> *DC/Admit/Observation/Transfer - Attestations Scribe Attestion: 01/19/18 23:58 Documentation prepared by Madeleine Dewitt, acting as biomedical scientist for Markel Bethea MD <Madeleine Dewitt - Last Filed: 01/20/18 00:08> - Discharge Dispostion Admit: Yes <Markel Bethea - Last Filed: 01/20/18 01:23> Diagnosis at time of Disposition: Chest pain Qualifiers: Chest pain type: unspecified Qualified Code(s): R07.9 - Chest pain, unspecified - Discharge Dispostion Condition at time of disposition: Stable - Referrals Referrals: Alfredo Krishnamurthy MD [Primary Care Provider] -
[2018-01-19 23:59] LABS: BASO % 0.7 % (0-2.0); EOS % 1.3 % (0-4.5); HEMATOCRIT 36.4 % (32.4-45.2); HEMOGLOBIN 12.7 GM/dL (10.7-15.3); LYMPH % 7.4 % (8-40); MCH 31.2 pg (25.7-33.7); MCHC 34.8 g/dl (32.0-36.0); MEAN CELL VOLUME 89.6 fl (80-96); MEAN PLT VOLUME 8.1 fl (7.5-11.1); MONO % 6.2 % (3.8-10.2); NEUT % 84.4 % (42.8-82.8); PLATELET COUNT 193 K/MM3 (134-434); RBC 4.06 M/mm3 (3.60-5.2); RDW 13.9 % (11.6-15.6); WHITE BLOOD COUNT 6.9 K/mm3 (4.0-10.0)
[2018-01-20 00:12] LABS: INR 1.06 (0.82-1.09)
[2018-01-20 00:14] LABS: ACTIVATED PTT 27.4 SECONDS (26.9-34.4)
[2018-01-20 00:30] LABS: ANION GAP 8 (8-16); BLOOD UREA NITROGEN 26 mg/dL (7-18); CHLORIDE 104 mmol/L (98-107); CO2 26 mmol/L (21-32); GLUCOSE,RANDOM 111 mg/dL (74-106); LIPASE 121 U/L (73-393); MAGNESIUM 1.9 mg/dL (1.8-2.4); POTASSIUM 3.9 mmol/L (3.5-5.1); SODIUM 138 mmol/L (136-145)
[2018-01-20 00:36] LABS: ALK PHOS 37 U/L (45-117); BILIRUBIN,TOTAL 0.4 mg/dL (0.2-1.0); CREATININE 0.8 mg/dL (0.55-1.02); SGOT/AST 10 U/L (15-37); SGPT/ALT 14 U/L (12-78); TOT PROT 7.3 g/dl (6.4-8.2)
[2018-01-20] MEDS ORDERED: ASPIRIN 81 MG CHEWABLE TABLETS PO ONE (01:16)
--- NOTE | 2018-01-20 01:21 | PN ---
Teaching Attending Note Name of Resident: Sidney Askew ATTENDING PHYSICIAN STATEMENT I saw and evaluated the patient. I reviewed the resident's note and discussed the case with the resident. I agree with the resident's findings and plan as documented. SUBJECTIVE: 78 F with Pmhx. of HTN, Breast CA s/p lumpectomy (on horomone therapy), Nephrolithiasis, OA, who presents with chest pain X2 days duration. As per patient Chest pain is substernal. Also with associated nausea. Also with associated chest pressure. No diaphoresis, fevers, or chills. Denies any radiation. Denies any chest pain or pressure currently. Denies any shortness of breath. OBJECTIVE: Physical: VS: Vital Signs Period Temp Pulse Resp BP Sys/Suggs Pulse Ox Last 24 Hr 97.7 F 80 18 173/73 97 GEN: NAD, Resting in bed, AA0X3 HEENT: NCAT, PERRL, Throat without erythema or exudates CARD: RRR S1, S2 RESP: CTAB ABD: BSx4, NTD to palpation EXT: +1 Pitting Edema Bilateral and Equal CBCD WBC 6.9 K/mm3 (4.0-10.0) 01/19/18 23:50 RBC 4.06 M/mm3 (3.60-5.2) 01/19/18 23:50 Hgb 12.7 GM/dL (10.7-15.3) 01/19/18 23:50 Hct 36.4 % (32.4-45.2) 01/19/18 23:50 MCV 89.6 fl (80-96) 01/19/18 23:50 MCHC 34.8 g/dl (32.0-36.0) 01/19/18 23:50 RDW 13.9 % (11.6-15.6) 01/19/18 23:50 Plt Count 193 K/MM3 (134-434) 01/19/18 23:50 MPV 8.1 fl (7.5-11.1) 01/19/18 23:50 CMP Sodium 138 mmol/L (136-145) 01/19/18 23:50 Potassium 3.9 mmol/L (3.5-5.1) 01/19/18 23:50 Chloride 104 mmol/L (98-107) 04/02/18 23:50 Carbon Dioxide 26 mmol/L (21-32) 01/19/18 23:50 Anion Gap 8 (8-16) 01/19/18 23:50 BUN 26 mg/dL (7-18) H 01/19/18 23:50 Creatinine 0.8 mg/dL (0.55-1.02) 01/19/18 23:50 Creat Clearance w eGFR > 60 (>60) 01/19/18 23:50 Random Glucose 111 mg/dL (74-106) H 01/19/18 23:50 Calcium 9.0 mg/dL (8.5-10.1) 01/19/18 23:50 Total Bilirubin 0.4 mg/dL (0.2-1.0) 01/19/18 23:50 AST 10 U/L (15-37) L 01/19/18 23:50 ALT 14 U/L (12-78) 01/19/18 23:50 Alkaline Phosphatase 37 U/L (45-117) L 01/19/18 23:50 Total Protein 7.3 g/dl (6.4-8.2) 01/19/18 23:50 Albumin 4.0 g/dl (3.4-5.0) 01/19/18 23:50 CARDIAC ENZYMES Creatine Kinase 34 IU/L (26-192) 01/19/18 23:50 Troponin I < 0.02 ng/ml (0.00-0.05) 01/19/18 23:50 EKG:NSR 77, QtC 437 CXR: Cardiomegaly Home Medications Medication Instructions Recorded Diltiazem Cd [Cardizem Cd -] 240 mg PO DAILY 12/20/14 Naproxen Sodium [Aleve] 220 mg PO PRN PRN 07/03/17 ASSESSMENT AND PLAN: 78 F with Pmhx. of HTN, Breast CA s/p lumpectomy (on horomone therapy), Nephrolithiasis, OA, who presents with chest pain X2 days, being admitted for ACS rule out. 1.) Chest Pain - HEART 4 - RO ACS - Asa - BB - 02 - Nitro/Morphine prn pain, if reoccurs - Cardio consult - Echo - Hx. of Radiation for breast ca- Lipid panel 2.) HTN - C/W home meds 3.) Hx. of Breast Ca - On Horomone Therapy - Unsure what med 4.) Dvt Ppx - Scds Place in Obs- Tele
[2018-01-20] MEDS ORDERED: ASPIRIN 81 MG CHEWABLE TABLETS ONE (01:30)
[2018-01-20] MEDS ORDERED: HEPARIN NA (PORCINE) 5,000 UNITS/ML 1ML VIAL SQ SCH (02:00)
[2018-01-20] MEDS ORDERED: METOPROLOL TARTRATE 25 MG TABLET (FP) PO ONE (02:04)
--- NOTE | 2018-01-20 02:12 | HP ---
CHIEF COMPLAINT: chest pain, hypertension PCP: Dr. Castañeda HISTORY OF PRESENT ILLNESS: 78 year old female with a history of afib (not on anticoagulation), hypertension , breast ca s/p 2x lumpectomy, nephrolithiasis, osteoarthritis presents to the ED for a 2 day history of chest pain. She states that the pain came on suddenly and felt like a tight pressure on the left side of her chest. The chest pain subsequently dissipated on its own and the patient went to work. She states that she measured her blood pressure at work and was told to go down to the emergency department. She has never had any chest pain like that before, never had any MIs or had any stenting. Patient states that her atrial fibrillation was diagnosed any years ago, that it was a one time episode and she was never put on anticoagulation therapy. Currently the patient denies any chest pain, shortness of breath, nausea, vomiting, diarrhea, fevers, chills, recent travel or any sick contacts. Her watch parts inspector is Dr. Navarro and she states that she had an appointment on Friday with him to get a stress test and echocardiogram performed. ER course was notable for: (1) negative troponin (2) EKG NSR, no ST changes, normal QTc (3) hypertensive 173/73 Recent Travel: none PAST MEDICAL HISTORY: afib (not on anticoagulation), hypertension, breast ca s/ p 2x lumpectomy, nephrolithiasis, osteoarthritis PAST SURGICAL HISTORY: 2x lumpectomy Social History: Smoking: never Alcohol: never Drugs: never Family History: hypertension in the father Allergies Penicillins Allergy (Intermediate, Verified 07/29/17 12:09) Rash "RESISTANT TO ASNESTHESIA" Adverse Reaction (Severe, Uncoded 07/29/17 12:09) WOKE UP DURING SURGERY HOME MEDICATIONS: Home Medications Medication Instructions Recorded Diltiazem Cd [Cardizem Cd -] 240 mg PO DAILY 12/20/14 Naproxen Sodium [Aleve] 220 mg PO PRN PRN 07/03/17 REVIEW OF SYSTEMS CONSTITUTIONAL: Absent: fever, chills, diaphoresis, generalized weakness, malaise, loss of appetite, weight change HEENT: Absent: rhinorrhea, nasal congestion, throat pain, throat swelling, difficulty swallowing, mouth swelling, ear pain, eye pain, visual changes CARDIOVASCULAR: Absent: chest pain, syncope, palpitations, irregular heart rate, lightheadedness , peripheral edema RESPIRATORY: Absent: cough, shortness of breath, dyspnea with exertion, orthopnea, wheezing, stridor, hemoptysis GASTROINTESTINAL: Absent: abdominal pain, abdominal distension, nausea, vomiting, diarrhea, constipation, melena, hematochezia GENITOURINARY: Absent: dysuria, frequency, urgency, hesitancy, hematuria, flank pain, genital pain MUSCULOSKELETAL: Absent: myalgia, arthralgia, joint swelling, back pain, neck pain SKIN: Absent: rash, itching, pallor HEMATOLOGIC/IMMUNOLOGIC: Absent: easy bleeding, easy bruising, lymphadenopathy, frequent infections ENDOCRINE: Absent: unexplained weight gain, unexplained weight loss, heat intolerance, cold intolerance NEUROLOGIC: Absent: headache, focal weakness or paresthesias, dizziness, unsteady gait, seizure, mental status changes, bladder or bowel incontinence PSYCHIATRIC: Absent: anxiety, depression, suicidal or homicidal ideation, hallucinations. PHYSICAL EXAMINATION Vital Signs - 24 hr 01/20/18 00:08 Temperature 97.7 F Pulse Rate 80 Respiratory 18 Rate Blood Pressure 173/73 O2 Sat by Pulse 97 Oximetry (%) GENERAL: A&Ox3, no acute distress EYES: PERRLA, EOMI ENT: Moist mucus membranes NECK: No JVD LUNGS: CTA, no wheezes HEART: RRR, 3/6 systolic murmur noted at the 2nd R intercostal space ABDOMEN: Soft, nontender, BS present MUSCULOSKELETAL: No CVA Tenderness EXTREMITIES: 2+ pulses, no edema. NEUROLOGICAL: Cranial nerves II-XII intact. Laboratory Results - last 24 hr 01/19/18 01/19/18 01/19/18 23:50 23:50 23:50 WBC 6.9 RBC 4.06 Hgb 12.7 Hct 36.4 MCV 89.6 MCH 31.2 MCHC 34.8 RDW 13.9 Plt Count 193 MPV 8.1 Neutrophils % 84.4 H Lymphocytes % 7.4 L D Monocytes % 6.2 Eosinophils % 1.3 Basophils % 0.7 PT with INR 12.00 H INR 1.06 PTT (Actin FS) 27.4 Sodium 138 Potassium 3.9 Chloride 104 Carbon Dioxide 26 Anion Gap 8 BUN 26 H Creatinine 0.8 Creat Clearance w eGFR > 60 Random Glucose 111 H Calcium 9.0 Magnesium 1.9 Total Bilirubin 0.4 AST 10 L ALT 14 Alkaline Phosphatase 37 L Creatine Kinase 34 Troponin I < 0.02 Total Protein 7.3 Albumin 4.0 Lipase 121 ASSESSMENT/PLAN: 78 yo F w/ a hx of afib (not on anticoagulation), HTN, breast CA s/p 2x lumpectomy, nephrolithiasis, osteoarthritis presents to the hospital for chest pain and is admitted for r/o ACS #Chest pain, Rule out ACS: patient is currently asymptomatic -cardiac monitoring now -received ASA in ED, continue 81 mg tomorrow -start metoprolol 25mg once daily -lipid profile ordered -echocardiogram ordered -cardiology consultation Dr. Navarro appreciated #Hypertension: patient was hypertensive at 173/73, she states that she is on diltiazem but describes a different dose than in the chart -recheck BP -start metoprolol 25mg once daily -need to confirm home medications in the AM (patient receives medications from [facility] ) #Osteoporosis: not an acute issue, patient is on a medication at home but cannot remember the name -confirm home meds and restart the medication patient takes for osteoporosis in the AM #Breast CA s/p lumpectomy: not an acute issue, patient was on hormonal therapy in the past -stopped taking the medications because she did not like how it made her feel #FEN -no standing fluids -replete lytes as necessary -sodium controlled diet #Prophylaxis -heparin 5000 subq tid #Disposition -admit to tele-obs Visit type - Emergency Visit Emergency Visit: Yes ED Registration Date: 01/20/18 Care time: The patient presented to the Emergency Department on the above date and was hospitalized for further evaluation of their emergent condition. - New Patient This patient is new to me today: Yes Date on this admission: 01/20/18 - Critical Care Critical Care patient: No Hospitalist Screening - Colonoscopy Questionnaire Colonoscopy Questionnaire: Colonoscopy Questionnaire - Patient: 50 - 75 years old and never had a screening colonoscopy: Unknown History of colon or rectal polyps, or CA: Unknown History of IBD, Crohn's disease or UC: Unknown History of abdominal radiation therapy as a child: Unknown - Relative: 1 with colon or rectal CA, or polyps at age 60 or younger: Unknown Colon or rectal CA diagnosed at age 45 or younger: Unknown Multiple relatives with colon or rectal CA: Unknown - Outcome: Screening Result: Negative Screen
[2018-01-20] MEDS ORDERED: METOPROLOL TARTRATE 25 MG TABLET (FP) ONE (02:44)
[2018-01-20] MEDS ORDERED: NITROFURANTOIN MACROCRYSTAL 50 MG CAPSULE (FP) ONE (03:28)
[2018-01-20 05:37] VITALS: BMI 29.6
[2018-01-20 08:16] LABS: HEMATOCRIT 34.6 % (32.4-45.2); HEMOGLOBIN 12.1 GM/dL (10.7-15.3); MCH 31.2 pg (25.7-33.7); MCHC 34.9 g/dl (32.0-36.0); MEAN CELL VOLUME 89.3 fl (80-96); MEAN PLT VOLUME 8.2 fl (7.5-11.1); PLATELET COUNT 170 K/MM3 (134-434); RBC 3.88 M/mm3 (3.60-5.2); RDW 13.3 % (11.6-15.6); WHITE BLOOD COUNT 5.2 K/mm3 (4.0-10.0)
[2018-01-20 08:40] LABS: CHLORIDE 107 mmol/L (98-107); POTASSIUM 3.7 mmol/L (3.5-5.1); SODIUM 141 mmol/L (136-145)
--- NOTE | 2018-01-20 08:51 | PN ---
Progress Note (short form) - Note Progress Note: Chief Complaint: Events noted, notes reviewed, chest pain, new onset, denies any dyspnea History of Present Illness: Seen and examined on telemetry. Full consult dictated Medications: Current Medications Aspirin (Asa -) 81 mg PO DAILY KEELEY Review of Systems - Review of Systems Constitutional: denies: Chills, Fever Cardiovascular: As noted above Respiratory: denies: Cough or sputum Production Gastrointestinal: denies: Nausea, Vomiting, Diarrhea, Constipation or Abdominal Pain Musculoskeletal: reports: Joint Pain/right Hip pain Neurological: denies: Dizziness or Headaches Vital Signs: Last Vital Signs Temp Pulse Resp BP Pulse Ox 97.5 F L 54 L 18 167/71 96 01/20/18 06:00 01/20/18 06:00 01/20/18 06:00 01/20/18 06:00 01/20/18 04:05 Intake & Output 01/17/18 01/18/18 01/19/18 01/20/18 23:59 23:59 23:59 23:59 Intake Total 10 Balance 10 Weight 183 lb 9.6 oz Neck: Supple Negative JVD no bruit appreciated Respiratory: Clear to A&P Bilaterally Cardiovascular: S1-S2 Regular Rate and Rhythm Grade 2/6 SALIMA Gastrointestinal: Soft Benign Normal Bowel Sounds Ext: No Edema Intact Distal Pulses Labs: Troponin, BNP 01/19/18 23:50 Troponin I < 0.02 CBC, BMP 01/20/18 06:00 01/20/18 06:00 Hepatic Panel Total Bilirubin 0.4 mg/dL (0.2-1.0) 01/19/18 23:50 AST 10 U/L (15-37) L 01/19/18 23:50 ALT 14 U/L (12-78) 01/19/18 23:50 Alkaline Phosphatase 37 U/L (45-117) L 01/19/18 23:50 Albumin 4.0 g/dl (3.4-5.0) 01/19/18 23:50 INR, PTT INR 1.06 (0.82-1.09) 01/19/18 23:50 Assessment/Plan ASSESSMENT: 1. Chest pain syndrome atypical for CAD angina pectoris but to be excluded 2. Diastolic LV dysfunction with class 0 NYHA classification LV failure 3. Heart murmur most likely related to AV sclerosis, AV stenosis to be excluded 4. Remote history of paroxysmal atrial fibrillation [id number] score of 5, currently on no A/C therapy 5. Hypertension 6. Hypercholesterolemia 7. History of Breast carcinoma 8. Advanced degenerative joint disease PLAN: 1. Add B-Blockers 2. Continue Cardizem CD 3. Continue ASA 4. Add statins 5. Echocardiography to evaluate LV size and function and the above noted heart murmur 6. If repeat cardiac biochemical markers are negative and patient is pain free on medical therapy can be D/C home for further evaluation including outpatient MPI study Discussed in detail with the patient Omid Jordan MD
[2018-01-20 09:01] LABS: ANION GAP 7 (8-16); BLOOD UREA NITROGEN 20 mg/dL (7-18); CALCIUM 8.5 mg/dL (8.5-10.1); CHOLESTEROL 239 mg/dL (50-200); CO2 27 mmol/L (21-32); CREATININE 0.6 mg/dL (0.55-1.02); GLUCOSE,RANDOM 98 mg/dL (74-106); HDL CHOLESTEROL 65 mg/dL (40-60); LDL CHOLESTEROL (ONLY SJRH) 153 mg/dL (5-100); MAGNESIUM 1.9 mg/dL (1.8-2.4); PHOSPHOROUS 3.9 mg/dL (2.5-4.9); TRIGLYCERIDES 106 mg/dL (35-160)
[2018-01-20] MEDS ORDERED: ASPIRIN 81 MG CHEWABLE TABLETS PO SCH (10:00)
--- NOTE | 2018-01-20 10:01 | CONS ---
DATE OF CONSULTATION: 01/20/2018 REQUESTED BY: Hospitalist. CHIEF COMPLAINT: Chest pain. A 78-year-old female with known history of probable diastolic left ventricular dysfunction with class 0 [place] [employer] classification of left ventricular failure. Remote history of paroxysmal atrial fibrillation. CHADS-2 VASc score of 5, currently on no anticoagulation therapy. Hypertensive cardiovascular disease, hypercholesterolemia, breast carcinoma post lumpectomy, advanced degenerative joint disease who was in her usual state of health presenting to [facility] with chest discomfort. 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 Symptoms were not exacerbated with physical exertion and patient denied any associated symptomatology, i.e. diaphoresis. The patient denied any dyspnea, orthopnea, paroxysmal nocturnal dyspnea, or peripheral edema. The patient denied any palpitations, dizziness, lightheadedness, or syncope. Currently, the patient is pain free. Initial cardiac biochemical markers were negative and there were no acute electrocardiographic changes. PAST MEDICAL HISTORY: Diastolic left ventricular dysfunction with class 0 [place] [employer] classification left ventricular failure, paroxysmal atrial fibrillation, CHADS-2 VASc score of 5, remote history on no anticoagulation therapy, hypertensive cardiovascular disease, hypercholesterolemia, breast carcinoma post lumpectomy, advanced degenerative joint disease, osteoporosis. SOCIAL HISTORY: Nonsmoker. FAMILY HISTORY: Positive coronary artery disease. ALLERGIES: PENICILLIN. MEDICAL THERAPY AT HOME: Included Cardizem CD 300 mg once a day. REVIEW OF SYSTEMS: Head and neck: Denies headache, photophobia, blurring of vision. Respiratory: No cough or sputum production. Cardiovascular: As noted above. Gastrointestinal: Denies nausea, vomiting, diarrhea, abdominal discomfort. Genitourinary: No symptoms reported. Musculoskeletal: Advanced degenerative joint disease. Persistent right hip discomfort. PHYSICAL EXAMINATION: Vital Signs: Blood pressure 167/71 mmHg, pulse rate of 54 beats per minute. Head and neck: Pupils equal and reactive to light and accommodation. Extraocular muscles intact. Anicteric sclerae. Negative JVD. No bruit appreciated. Chest: Clear to auscultation and percussion. Cardiovascular: S1, S2 regular. Grade 2/6 systolic ejection murmur. No clicks or gallops. Abdomen: Soft, benign. Normoactive bowel sounds. Extremities: Negative edema. Intact distal pulses. No calf tenderness. Electrocardiogram revealed sinus rhythm within normal limits. Troponin less than 0.02. CBC revealed white cell count 5.3, hemoglobin 12.1, platelets 170. Basic metabolic profile revealed sodium 141, potassium 3.7, BUN 20, creatinine 0.6, glucose 98, INR 1.06. ASSESSMENT: 1. Chest pain syndrome, atypical for coronary artery disease. Angina pectoris felt to be excluded. 2. Diastolic left ventricular dysfunction with class 0 [place] [employer] classification left ventricular failure. 3. Heart murmur most likely related to aortic valve sclerosis. Aortic valve stenosis to be excluded. 4. Remote history of paroxysmal atrial fibrillation. CHADS-VASc score of 5, currently on no anticoagulation therapy. 5. Hypertensive cardiovascular disease. 6. Hypercholesterolemia. 7. History of breast carcinoma, post lumpectomy. 8. Advanced degenerative joint disease. RECOMMENDATION: 1. Addition of beta blockers. 2. Continuation of Cardizem CD therapy. 3. Continuation of aspirin. 4. Addition of statin therapy. 5. Echocardiography for evaluation of left ventricular size and function of the above-noted heart murmur. 6. If repeat cardiac biochemical markers are negative and patient is pain free on medical therapy, can be discharged home for further evaluation as outpatient, including myocardial perfusion imaging study. Discussed in detail with the patient. Thank you for the kind referral. JABIER GARCIA M.D. [id number]
--- NOTE | 2018-01-20 10:07 | EKG ---
Test Reason : Blood Pressure : / mmHG Vent. Rate : 074 BPM Atrial Rate : 074 BPM P-R Int : 144 ms QRS Dur : 090 ms QT Int : 394 ms P-R-T Axes : 036 001 046 degrees QTc Int : 437 ms NORMAL SINUS RHYTHM NORMAL ECG WHEN COMPARED WITH ECG OF 17-JUN-2017 15:22, NO SIGNIFICANT CHANGE WAS FOUND Confirmed by Pravin Friedman MD ([id number]) on 01/20/2018 10:07:44 AM Referred By: Confirmed By:Pravin Friedman MD
--- NOTE | 2018-01-20 12:01 | DS ---
Physical Examination Vital Signs: Vital Signs Temperature 98 F 01/20/18 10:00 Pulse Rate 60 01/20/18 10:00 Respiratory Rate 18 01/20/18 10:00 Blood Pressure 167/68 01/20/18 10:00 O2 Sat by Pulse Oximetry (%) 96 01/20/18 04:05 Constitutional: Yes: No Distress Cardiovascular: Yes: Regular Rate and Rhythm Respiratory: Yes: CTA Bilaterally Gastrointestinal: Yes: Normal Bowel Sounds, Soft. No: Tenderness Edema: No Labs: CBC, BMP 01/20/18 06:00 01/20/18 06:00 Discharge Summary Reason For Visit: CHEST PAIN Current Active Problems Chest pain (Acute) Hospital Course: Admitted for chest pain Seen by Cardiology Telemetry uneventful Cardiac enzymes negative Echo normal Pt stable for dc home follow up with PMD and Cardiology in 2 weeks Condition: Stable - Instructions Referrals: Alfredo Krishnamurthy MD [Primary Care Provider] - Disposition: HOME - Home Medications Comprehensive Discharge Medication List: Ambulatory Orders Aspirin [ASA -] 81 mg PO DAILY #30 tab.chew 01/20/18 Atorvastatin Ca [Lipitor] 40 mg PO HS #30 tablet 01/20/18 Diltiazem Cd [Cardizem Cd -] 180 mg PO DAILY #30 cap.cd.24h 01/20/18 Metoprolol Succinate [Toprol XL -] 50 mg PO DAILY #30 tab.sr.24h 01/20/18
[2018-01-20] MEDS ORDERED: ACETAMINOPHEN 325 MG TABLET (FP) PO PRN (12:07)
[2018-01-20] MEDS ORDERED: ACETAMINOPHEN 325 MG TABLET (FP) ONE (12:12)
[2018-01-20 19:00] VITALS: BP 145/67; PULSE 59; TEMP 98
[2018-01-20] MEDS ORDERED: ATORVASTATIN CA 40 MG TABLET (FP) PO SCH (22:00)
== END 2018-01-20 18:03 | disposition home or self-care (01) ==
LOC: JER 23:26 → JERBED 01-20 01:23 → UNDOADMOB 01-20 01:30 → J4W 01-20 04:29
PROVIDERS: ADMIT Internal Medicine; ATTEND Internal Medicine
DX: R07.89 Other chest pain (principal); I48.0 Paroxysmal atrial fibrillation; I11.0 Hypertensive heart disease with heart failure; I50.30 Unspecified diastolic (congestive) heart failure; M19.90 Unspecified osteoarthritis, unspecified site; Z87.442 Personal history of urinary calculi; Z85.3 Personal history of malignant neoplasm of breast; Z88.0 Allergy status to penicillin; Z88.4 Allergy status to anesthetic agent; M81.0 Age-related osteoporosis without current pathological fracture; R01.1 Cardiac murmur, unspecified
CPT/HCPCS: 36415; 71045-TC-FY; 80048; 80053; 80061; 82550; 83690; 83721; 83735; 84100; 84484; 85025; 85027; 85610; 85730; 93005; 93010; 93306-TC; 99283-25; G0378

== ENCOUNTER 2019-10-12 09:46 | Inpatient (IN) | payer OTHER ==
[2019-10-12 10:10] VITALS: BMI 29.0
[2019-10-12] MEDS ORDERED: ASPIRIN 81 MG CHEWABLE TABLETS PO ONE (10:23)
[2019-10-12] MEDS ORDERED: SODIUM CHLORIDE 500 ML IV ONE (10:23)
[2019-10-12] MEDS ORDERED: ASPIRIN 81 MG CHEWABLE TABLETS ONE (10:38)
[2019-10-12] MEDS ORDERED: dilTIAZem HCL 125 MG/25 ML - 25 ML VIAL ONE (10:39)
[2019-10-12] MEDS ORDERED: dilTIAZem HCL 50 MG/10 ML - 10 ML VIAL IVPUSH ONE ×2 (10:42→10:53)
[2019-10-12] MEDS ORDERED: dilTIAZem HCL 60 MG TABLET (FP) PO ONE (10:50)
[2019-10-12] MEDS ORDERED: dilTIAZem HCL 60 MG TABLET (FP) ONE (10:56)
--- NOTE | 2019-10-12 11:03 | PDOC ---
Documentation entered by Marimar Anna SCRIBE, acting as scribe for Zach Tatum MD. Zach Tatum MD: This documentation has been prepared by the Shoshana mccabe Brenda, SCRIBE, under my direction and personally reviewed by me in its entirety. I confirm that the documentation accurately reflects all work, treatment, procedures, and medical decision making performed by me. History of Present Illness - General Chief Complaint: Chest Pain Stated Complaint: chest pressure Time Seen by Provider: 10/12/19 10:20 History Source: Patient Exam Limitations: No Limitations - History of Present Illness Initial Comments: 10/12/19 11:03 The patient is a 79 year old female, with a significant PMH of Atrial fibrillation (20 years ago), HTN Breast CA s/p Lumpectomy (on hormone therapy), nephrolithiasis, osteoarthritis, HLD and HTN who presents to the emergency department with persistent chest pressure staring at 5:00am this morning upon waking up, accompanied by intermittent palpitations and strange beats. She states being uncertain Patient also endorses feeling winded this morning along with nauseas and felt dizzy while walking into the ED. Patient reports being unable to fully ambulate the past 2 weeks due to inflamed tendon of the right foot. Patient reports taking a baby aspirin this morning. There was a normal echo performed in January of 2018. The patient denies changes in medication doses. Denies shortness of breath and headache. Denies fever, chills, vomiting, diarrhea and constipation. Denies low PO intake. Denies any urinary symptoms. Denies any other symptoms. Allergies: Penicillins Past surgical history: Lumpectomy Social history: Denies alcohol use, tobacco use,or illicit drug use. PCP: Dr. 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: Colleen Past History - Past Medical History Allergies/Adverse Reactions: Allergies Allergy/AdvReac Type Severity Reaction Status Date / Time Penicillins Allergy Intermediate Rash Verified 07/29/17 12:09 "RESISTANT TO ASNESTHESIA" AdvReac Severe Uncoded 07/29/17 12:09 Home Medications: Ambulatory Orders Aspirin [ASA -] 81 mg PO DAILY #30 tab.chew 01/20/18 Atorvastatin Ca [Lipitor] 40 mg PO HS #30 tablet 01/20/18 Diltiazem Cd [Cardizem Cd -] 180 mg PO DAILY #30 cap.cd.24h 01/20/18 Metoprolol Succinate [Toprol XL -] 50 mg PO DAILY #30 tab.sr.24h 01/20/18 Anemia: No Asthma: No Cancer: No Cardiac Disorders: Yes (A.Fib) CVA: No COPD: No CHF: No Dementia: No Diabetes: No GI Disorders: No Disorders: Yes (H/O KIDNEY STONES) HTN: Yes Hypercholesterolemia: No Liver Disease: No Seizures: No Thyroid Disease: No - Surgical History Abdominal Surgery: No Appendectomy: No Cardiac Surgery: No Cholecystectomy: No Lung Surgery: No Neurologic Surgery: No Orthopedic Surgery: No - Immunization History Immunization Up to Date: No - Psycho Social/Smoking Cessation Hx Smoking History: Never smoked Have you smoked in the past 12 months: No Information on smoking cessation initiated: No Hx Alcohol Use: No Drug/Substance Use Hx: No Substance Use Type: None Hx Substance Use Treatment: No Review of Systems - Review of Systems Able to Perform ROS?: Yes Comments:: 10/12/19 11:07 GENERAL/CONSTITUTIONAL: (+) Dizzy/ No fever or chills. No weakness. HEAD, EYES, EARS, NOSE AND THROAT: No change in vision. No ear pain or discharge. No sore throat. CARDIOVASCULAR: (+) Chest pressure. (+) Palpitations. No SOB. RESPIRATORY: No cough, wheezing, or hemoptysis. GASTROINTESTINAL: (+) Nausea. No vomiting, diarrhea or constipation. GENITOURINARY: No dysuria, frequency, or change in urination. MUSCULOSKELETAL: No neck or back pain. SKIN: No rash NEUROLOGIC: No headache, vertigo, loss of consciousness, or change in strength/ sensation. ENDOCRINE: No increased thirst. No abnormal weight change. HEMATOLOGIC/LYMPHATIC: No anemia, easy bleeding, or history of blood clots. ALLERGIC/IMMUNOLOGIC: No hives or skin allergy. Constitutional: No: Chills, Fever Respiratory: Yes: SOB with Exertion. No: Cough Cardiac (ROS): Yes: Chest Pain, Lightheadedness, Palpitations. No: Syncope ABD/GI: No: Nausea, Vomiting Neurological: No: Headache All Other Systems: Reviewed and Negative *Physical Exam - Vital Signs Last Vital Signs Temp Pulse Resp BP Pulse Ox 98.1 F 80 16 134/65 98 10/12/19 10:06 10/12/19 10:06 10/12/19 10:06 10/12/19 10:06 10/12/19 10:06 - Physical Exam 10/12/19 11:07 GENERAL: The patient is awake, alert, and fully oriented, in no acute distress. HEAD: Normal with no signs of trauma. EYES: Pupils equal, round and reactive to light, extraocular movements intact, sclera anicteric, conjunctiva clear with no pallor. ENT: Ears normal, nares patent, oropharynx clear without exudates. Moist mucous membranes. NECK: Normal range of motion, supple without lymphadenopathy, JVD, or masses. LUNGS: Breath sounds equal, clear to auscultation bilaterally. No wheeze/ crackles. HEART: (+) Irregularly irregular (+) Tachycardia. No murmur or rub. ABDOMEN: Soft/nontender/nondistended. BS wnl. No guarding or rebound. No palpable masses. No hepatosplenomegaly. EXTREMITIES: (+) Trace Pretibial Edema, more prominent on right foot than left. No calf tenderness. No clubbing or cyanosis. No cords, erythema, or tenderness. NEUROLOGICAL: Cranial nerves II through XII grossly intact. Normal speech. PSYCH: Normal mood, normal affect. SKIN: Warm, Dry, normal turgor, no rashes or lesions noted. Heart Score/ECG Review #1 ECG reviewed & interpreted by me at: 10:16 Compared to previous ECG there are: Changes noted (c/w 01/19/18, previously sinus rhythm. LVH unchanged.) 10/12/19 10:58 Atrial fibrillation with rapid ventricular response at 126, positive LVH, QTC 469, no acute ischemic change. #2 ECG reviewed & interpreted by me at: 11:09 General ECG Interpretation: Normal Rate (afib at 95), Normal Intervals (LVH, qtc 447), No acute ischemic changes ED Treatment Course - LABORATORY CBC & Chemistry Diagram: 10/12/19 10:49 10/12/19 10:49 - RADIOLOGY Radiology Studies Ordered: Category Date Time Status CHEST X-RAY PORTABLE* [RAD] Stat Radiology 10/12/19 10:23 Ordered - Medications Given in the ED: ED Medications Discontinued Medications Generic Name Dose Route Start Last Admin Trade Name Freq PRN Reason Stop Dose Admin Aspirin 162 mg 10/12/19 10:23 10/12/19 10:48 Asa - PO 10/12/19 10:24 162 mg ONCE ONE Administration Diltiazem HCl 10 mg 10/12/19 10:42 10/12/19 10:49 Cardizem Injection - IVPUSH 10/12/19 10:43 10 mg ONCE ONE Administration Medical Decision Making - Critical Care Time Total Critical Care Time (minutes): 60 Critical Care Statement: The care of this patient involved high complexity decision making to prevent further life threatening deterioration of the patient 's condition and/or to evaluate & treat vital organ system(s) failure or risk of failure. - Medical Decision Making 10/12/19 10:59 A portion of this note was documented by scribe services under my direction. I have reviewed the details of the note, within reason, and agree with the documentation with the following case summary and management plan written by me. 79-year-old female with history of hypertension and high cholesterol, breast CA status post resection on maintenance oral chemotherapy, distant history of paroxysmal atrial fibrillation 16 years ago not maintained on any anticoagulation, normal echo performed in January 2018 during admission here, presents now previously in usual state of normal health until she awoke at 5 AM with vague chest pressure and intermittent palpitations, symptoms were persistent with some lightheadedness and dyspnea on exertion, so she presented for evaluation. Denies any exacerbating factors, no recent dehydration or infection. Tachycardia to 120s, irregular, blood pressure normal Alert and conversant, smiling and joking with staff Lungs are clear Trace right ankle edema without calf tenderness 79-year-old female with history of paroxysmal atrial fibrillation in the past presents now with recurrence with rapid ventricular response, blood pressure stable but dyspneic with some chest pressure. Placed immediately on monitor, EKG obtained without acute ischemia Rate control with IV diltiazem push Labs, chest x-ray, aspirin Close monitoring, repeat doses as needed Admission, cardiology consult 10/12/19 11:25 Heart rate improved after diltiazem 10 mg IV push x2, now ranging from 90-1 05, blood pressure stable, tolerated well. Repeat EKG shows atrial fibrillation at rate of 95, LVH persist, no ischemic changes. Received oral dose of Cardizem, awaiting labs, then admission. 10/12/19 14:19 labs wnl, negative trop, lytes normal. remains rate controlled, still in afib. given lovenox. Dr. Jordan consulted. Accepted for inpatient tele by Dr. Alexander, covering Dr. Castañeda. Discharge - Discharge Information Problems reviewed: Yes Clinical Impression/Diagnosis: Atrial fibrillation with rapid ventricular response Condition: Fair - Admission Yes - Follow up/Referral - Patient Discharge Instructions - Post Discharge Activity
[2019-10-12 11:19] LABS: BASO % 0.5 % (0-2.0); EOS % 2.8 % (0-4.5); HEMATOCRIT 38.6 % (32.4-45.2); HEMOGLOBIN 13.1 GM/dL (10.7-15.3); LYMPH % 13.6 % (8-40); MCH 30.4 pg (25.7-33.7); MCHC 33.9 g/dl (32.0-36.0); MEAN CELL VOLUME 89.7 fl (80-96); MEAN PLT VOLUME 9.2 fl (7.5-11.1); MONO % 7.8 % (3.8-10.2); NEUT % 75.3 % (42.8-82.8); PLATELET COUNT 217 K/MM3 (134-434); RDW 13.7 % (11.6-15.6); WHITE BLOOD COUNT 7.3 K/mm3 (4.0-10.0)
[2019-10-12 11:45] LABS: ALBUMIN 3.9 g/dl (3.4-5.0); BILIRUBIN,TOTAL 0.8 mg/dL (0.2-1); BLOOD UREA NITROGEN 29.6 mg/dL (7-18); CALCIUM 9.3 mg/dL (8.5-10.1); CREATININE 0.7 mg/dL (0.55-1.3); POTASSIUM 4.1 mmol/L (3.5-5.1); TOT PROT 7.3 g/dl (6.4-8.2)
--- NOTE | 2019-10-12 12:13 | EKG ---
Test Reason : Blood Pressure : / mmHG Vent. Rate : 126 BPM Atrial Rate : 122 BPM P-R Int : 000 ms QRS Dur : 092 ms QT Int : 324 ms P-R-T Axes : 000 010 056 degrees QTc Int : 469 ms ATRIAL FIBRILLATION WITH RAPID VENTRICULAR RESPONSE MINIMAL VOLTAGE CRITERIA FOR LVH, MAY BE NORMAL VARIANT NONSPECIFIC ST ABNORMALITY ABNORMAL ECG WHEN COMPARED WITH ECG OF 19-JAN-2018 23:53, ATRIAL FIBRILLATION HAS REPLACED SINUS RHYTHM VENT. RATE HAS INCREASED BY 52 BPM Confirmed by MD Susan, Emir ([id number]) on 10/12/2019 12:13:33 PM Referred By: Confirmed By:Emir Davis MD
[2019-10-12 12:14] LABS: INR 0.99 (0.83-1.09); PROTHROMBIN TIME (PATIENT) 11.7 SEC (9.7-13.0)
[2019-10-12 12:17] LABS: ACTIVATED PTT 34.1 SECONDS (25.2-36.5)
[2019-10-12] MEDS ORDERED: ENOXAPARIN NA (PORCINE) 80 MG/0.8 ML DISP.SYRIN SQ ONE ×2 (12:49→13:07)
--- NOTE | 2019-10-12 14:20 | CON.CARD ---
Consult Consult Specialty:: Cardiology Referred by:: Emergency Medicine Reason for Consultation:: Recurrent PAF with RVR - History of Present Illness Chief Complaint: Chest pain, palpitations History of Present Illness: The patient is a 79 year old female, with a significant PMH of paroxysmal atrial fibrillation (20 years ago), HTN Breast CA s/p Lumpectomy (on hormone therapy), nephrolithiasis, osteoarthritis, HLD and HTN presented to the emergency department with chest pressure, intermittent palpitations and strange beats w/o MARTINS, and near w/o true syncope walking into the ED. Patient reports taking a baby aspirin this morning. There was a normal echo performed in January of 2018. Found to be in recurrent rapid afib 120's rate-controlled with Cardizem with improvement of symptoms. Allergies: Penicillins Past surgical history: Lumpectomy Social history: Denies alcohol use, tobacco use,or illicit drug use. PCP: Dr. Tien Castañeda Sider Mechanic: Julian - History Source History Provided By: Patient Limitations to Obtaining History: No Limitations - Alcohol/Substance Use Hx Alcohol Use: No - Smoking History Smoking history: Never smoked Have you smoked in the past 12 months: No Home Medications - Allergies Allergies/Adverse Reactions: Allergies Allergy/AdvReac Type Severity Reaction Status Date / Time Penicillins Allergy Intermediate Rash Verified 07/29/17 12:09 "RESISTANT TO ASNESTHESIA" AdvReac Severe Uncoded 07/29/17 12:09 - Home Medications Home Medications: Ambulatory Orders Aspirin [ASA -] 81 mg PO DAILY #30 tab.chew 01/20/18 Atorvastatin Ca [Lipitor] 40 mg PO HS #30 tablet 01/20/18 Diltiazem Cd [Cardizem Cd -] 180 mg PO DAILY #30 cap.cd.24h 01/20/18 Metoprolol Succinate [Toprol XL -] 50 mg PO DAILY #30 tab.sr.24h 01/20/18 Review of Systems - Review of Systems Cardiovascular: reports: Chest Pain, Palpitations, Shortness of Breath Respiratory: reports: Exercise Intolerance, SOB, SOB on Exertion Vital Signs: Vital Signs Temperature 98.1 F 10/12/19 10:06 Pulse Rate 111 H 10/12/19 12:15 Respiratory Rate 18 10/12/19 12:17 Blood Pressure 142/71 10/12/19 12:15 O2 Sat by Pulse Oximetry (%) 97 12/24/19 12:17 Constitutional: Yes: No Distress, Calm Neck: Yes: Supple Respiratory: Yes: Regular, Diminished Gastrointestinal: Yes: Normal Bowel Sounds, Soft Cardiovascular: Yes: Tachycardia, Pulse Irregular JVD: No Carotid Bruit: No Heart Sounds: Yes: S1, S2 Edema: No - Other Data Labs, Other Data: CBC, BMP 10/12/19 10:49 10/12/19 10:49 INR, PTT INR 0.99 (0.83-1.09) 10/12/19 10:49 Troponin, BNP 10/12/19 10:49 Troponin I 0.03 Troponin, BNP 10/12/19 10:49 Troponin I 0.03 Afib @ [address] changes Ejection Fraction %: LVEF > or = 40 % Imaging - Results Chest X-ray: Report Reviewed (NAD) Problem List - Problems (1) Hypertension Code(s): I10 - ESSENTIAL (PRIMARY) HYPERTENSION Qualifiers: Hypertension type: essential hypertension Qualified Code(s): I10 - Essential (primary) hypertension (2) Atrial fibrillation with rapid ventricular response Code(s): I48.91 - UNSPECIFIED ATRIAL FIBRILLATION (3) Chest pain Code(s): R07.9 - CHEST PAIN, UNSPECIFIED Qualifiers: Chest pain type: precordial pain Qualified Code(s): R07.2 - Precordial pain (4) Hyperlipidemia Code(s): E78.5 - HYPERLIPIDEMIA, UNSPECIFIED Qualifiers: Hyperlipidemia type: pure hypercholesterolemia Qualified Code(s): E78.00 - Pure hypercholesterolemia, unspecified; E78.0 - Pure hypercholesterolemia (5) Diastolic dysfunction Code(s): I51.89 - OTHER ILL-DEFINED HEART DISEASES Assessment/Plan 01/20/2018 Echo: Normal LV and RV size and fxn, normal atrial sizes, tr MR and TR 1. Chest pain, palpitations referable to recurrent paroxysmal atrial fibrillation [id number] score of 3, currently on no A/C therapy 2. Diastolic LV dysfunction with class 0 NYHA classification LV failure 3. Hypertension 4. Hypercholesterolemia 5. History of Breast carcinoma 6. Advanced degenerative joint disease PLAN: 1. Continue Toprol XL 50 qd and Cardizem CD 180 qd with IV Lopressor as needed for rate-control 2. Change ASA to Eliquis 5 bid due to elevated risk score 3. Continue Lipitor 40 qhs 4. Echocardiography if none performed as outpatient recently 5. If rate-control is suboptimal consider cardioversion 6. Thank you for consultative opportunity
[2019-10-12] MEDS ORDERED: METOPROLOL TARTRATE 5 MG/5 ML VIAL IVPUSH PRN (15:15)
--- NOTE | 2019-10-12 15:45 | EKG ---
Test Reason : Blood Pressure : / mmHG Vent. Rate : 095 BPM Atrial Rate : 110 BPM P-R Int : 000 ms QRS Dur : 086 ms QT Int : 356 ms P-R-T Axes : 000 005 030 degrees QTc Int : 447 ms ATRIAL FIBRILLATION MINIMAL VOLTAGE CRITERIA FOR LVH, MAY BE NORMAL VARIANT ABNORMAL ECG WHEN COMPARED WITH ECG OF 12-OCT-2019 10:16, NO SIGNIFICANT CHANGE WAS FOUND Confirmed by MD Jamie, Esdras ([id number]) on 10/12/2019 3:45:42 PM Referred By: Confirmed By:Esdras Ayala MD
[2019-10-12] MEDS: ATORVASTATIN CA 40 MG TABLET (FP) PO SCH (21:33)
[2019-10-12] MEDS: APIXABAN 5 MG TABLET PO SCH (21:33)
[2019-10-13] MEDS: APIXABAN 5 MG TABLET PO SCH ×2 (10:51→21:37)
--- NOTE | 2019-10-13 12:48 | HP ---
Admitting History and Physical - Primary Care Physician PCP: Alfredo Krishnamurthy - Admission Chief Complaint: C/O chest pain History of Present Illness: The patient is a 79 year old female, with a significant PMH of Atrial fibrillation (20 years ago), HTN Breast CA s/p Lumpectomy (on hormone therapy), nephrolithiasis, osteoarthritis, HLD and HTN who presents to the emergency department with persistent chest pressure staring at 5:00am this morning upon waking up, accompanied by intermittent palpitations and strange beats. She states being uncertain Patient also endorses feeling winded this morning along with nauseas and felt dizzy while walking into the ED. Patient reports being unable to fully ambulate the past 2 weeks due to inflamed tendon of the right foot. Patient reports taking a baby aspirin this morning. There was a normal echo performed in January of 2018. The patient denies changes in medication doses. Denies shortness of breath and headache. Denies fever, chills, vomiting, diarrhea and constipation. Denies low PO intake. Denies any urinary symptoms. Denies any other symptoms. History Source: Patient Limitations to Obtaining History: No Limitations - Past Medical History Cardiovascular: Yes: CAD - Smoking History Smoking history: Never smoked Have you smoked in the past 12 months: No - Alcohol/Substance Use Hx Alcohol Use: No Home Medications - Allergies Allergies/Adverse Reactions: Allergies Allergy/AdvReac Type Severity Reaction Status Date / Time Penicillins Allergy Intermediate Rash Verified 07/29/17 12:09 "RESISTANT TO ASNESTHESIA" AdvReac Severe Uncoded 07/29/17 12:09 - Home Medications Home Medications: Ambulatory Orders Aspirin [ASA -] 81 mg PO DAILY #30 tab.chew 01/20/18 Atorvastatin Ca [Lipitor] 40 mg PO HS #30 tablet 01/20/18 Diltiazem Cd [Cardizem Cd -] 180 mg PO DAILY #30 cap.cd.24h 01/20/18 Metoprolol Succinate [Toprol XL -] 50 mg PO DAILY #30 tab.sr.24h 01/20/18 Physical Examination Vital Signs: Vital Signs Temperature 98.4 F 10/13/19 10:00 Pulse Rate 87 10/13/19 10:00 Respiratory Rate 22 H 10/13/19 10:00 Blood Pressure 137/66 10/13/19 10:00 O2 Sat by Pulse Oximetry (%) 96 10/13/19 09:00 Labs: CBC, BMP 10/12/19 10:49 10/12/19 10:49 Problem List - Problems (1) Atrial fibrillation with rapid ventricular response Code(s): I48.91 - UNSPECIFIED ATRIAL FIBRILLATION (2) Diastolic dysfunction Code(s): I51.89 - OTHER ILL-DEFINED HEART DISEASES (3) Hyperlipidemia Code(s): E78.5 - HYPERLIPIDEMIA, UNSPECIFIED Qualifiers: Hyperlipidemia type: pure hypercholesterolemia Qualified Code(s): E78.00 - Pure hypercholesterolemia, unspecified; E78.0 - Pure hypercholesterolemia (4) Hypertension Code(s): I10 - ESSENTIAL (PRIMARY) HYPERTENSION Qualifiers: Hypertension type: essential hypertension Qualified Code(s): I10 - Essential (primary) hypertension (5) Arthritis of knee, left Code(s): M17.12 - UNILATERAL PRIMARY OSTEOARTHRITIS, LEFT KNEE (6) Chest pain Code(s): R07.9 - CHEST PAIN, UNSPECIFIED Qualifiers: Chest pain type: precordial pain Qualified Code(s): R07.2 - Precordial pain Assessment/Plan (1) Atrial fibrillation with rapid ventricular response Code(s): I48.91 - UNSPECIFIED ATRIAL FIBRILLATION (2) Diastolic dysfunction Code(s): I51.89 - OTHER ILL-DEFINED HEART DISEASES (3) Hyperlipidemia Code(s): E78.5 - HYPERLIPIDEMIA, UNSPECIFIED Qualifiers: Hyperlipidemia type: pure hypercholesterolemia Qualified Code(s): E78.00 - Pure hypercholesterolemia, unspecified; E78.0 - Pure hypercholesterolemia (4) Hypertension Code(s): I10 - ESSENTIAL (PRIMARY) HYPERTENSION Qualifiers: Hypertension type: essential hypertension Qualified Code(s): I10 - Essential (primary) hypertension (5) Arthritis of knee, left Code(s): M17.12 - UNILATERAL PRIMARY OSTEOARTHRITIS, LEFT KNEE (6) Chest pain Code(s): R07.9 - CHEST PAIN, UNSPECIFIED Qualifiers: Chest pain type: precordial pain Qualified Code(s): R07.2 - Precordial pain stress test in AM
--- NOTE | 2019-10-13 12:53 | PN ---
Progress Note, Physician Chief Complaint: Pt A&Ox3; no chest pain, palpitations, or dyspnea. She is tired of "staying in bed all day". History of Present Illness: The patient is a 79 year old female, with a significant PMH of Atrial fibrillation (20 years ago), HTN Breast CA s/p Lumpectomy (on hormone therapy), nephrolithiasis, osteoarthritis, HLD and HTN who presents to the emergency department with persistent chest pressure staring at 5:00am this morning upon waking up, accompanied by intermittent palpitations and strange beats. Patient also endorses feeling winded this morning along with nausea and felt dizzy while walking into the ED. Patient reports being unable to fully ambulate the past 2 weeks due to inflamed tendon of the right foot. Patient reports taking a baby aspirin this morning. There was a normal echo performed in January of 2018. The patient denies changes in medication doses. Denies shortness of breath and headache. Denies fever, chills, vomiting, diarrhea and constipation. Denies low PO intake. Denies any urinary symptoms. Denies any other symptoms. Allergies: Penicillins Past surgical history: Lumpectomy Social history: Denies alcohol use, tobacco use,or illicit drug use. PCP: Dr. Tien Castañeda Tutoring Manager: Joshua - Current Medication List Current Medications: Active Medications Apixaban (Eliquis -) 5 mg PO BID [facility] Last Admin: 10/13/19 10:51 Dose: 5 mg Atorvastatin Calcium (Lipitor -) 40 mg PO HS [facility] Last Admin: 10/12/19 21:33 Dose: 40 mg Diltiazem HCl (Cardizem Cd -) 180 mg PO DAILY [facility] Last Admin: 10/13/19 10:51 Dose: 180 mg Metoprolol Succinate (Toprol Xl -) 50 mg PO DAILY [facility] Last Admin: 10/13/19 10:51 Dose: 50 mg Metoprolol Tartrate (Lopressor Injection -) 5 mg IVPUSH Q4H PRN PRN Reason: TACHYCARDIA - Objective Vital Signs: Vital Signs Temperature 98.4 F 10/13/19 10:00 Pulse Rate 87 10/13/19 10:00 Respiratory Rate 22 H 10/13/19 10:00 Blood Pressure 137/66 10/13/19 10:00 O2 Sat by Pulse Oximetry (%) 96 10/13/19 09:00 Constitutional: Yes: Anxious Eyes: Yes: WNL HENT: Yes: WNL Neck: Yes: WNL Cardiovascular: Yes: S1 (varies in intensity), S2 Respiratory: Yes: WNL Gastrointestinal: Yes: Soft ...Rectal Exam: Yes: Deferred Genitourinary: No: Anuria Breast(s): Yes: WNL Musculoskeletal: Yes: Muscle Weakness Extremities: Yes: WNL Edema: No Peripheral Pulses WNL: Yes Integumentary: Yes: WNL Neurological: Yes: Alert, Oriented, Weakness Labs: CBC, BMP 10/12/19 10:49 10/12/19 10:49 INR, PTT INR 0.99 (0.83-1.09) 10/12/19 10:49 - ....Imaging Chest X-ray: Image Reviewed EKG: Image Reviewed Problem List - Problems (1) Atypical chest pain Assessment/Plan: mild, transient increase in TNI No acute STT changes on EKG. F/u prior workup for CAD (pt denies hx DE; risk factors include age, HTN, marked hyperlipidemia, sedentary, overweight) Elevated glucose; f/u HGBA1 c. Code(s): R07.89 - OTHER CHEST PAIN (2) Atrial fibrillation with rapid ventricular response Assessment/Plan: On metoprolol and diltiazem for HR control. On apixaban for anticoagulation. Code(s): I48.91 - UNSPECIFIED ATRIAL FIBRILLATION (3) Diastolic dysfunction Code(s): I51.89 - OTHER ILL-DEFINED HEART DISEASES (4) Hyperlipidemia Assessment/Plan: LDL > 170 mg/dL On atorvastatin 40 mg daily; may require increase. Code(s): E78.5 - HYPERLIPIDEMIA, UNSPECIFIED Qualifiers: Hyperlipidemia type: pure hypercholesterolemia Qualified Code(s): E78.00 - Pure hypercholesterolemia, unspecified; E78.0 - Pure hypercholesterolemia (5) Hypertension Code(s): I10 - ESSENTIAL (PRIMARY) HYPERTENSION Qualifiers: Hypertension type: essential hypertension Qualified Code(s): I10 - Essential (primary) hypertension
[2019-10-13] MEDS: ATORVASTATIN CA 40 MG TABLET (FP) PO SCH (21:38)
[2019-10-14 06:51] LABS: BASO % 0.9 % (0-2.0); EOS % 2.9 % (0-4.5); HEMATOCRIT 34.5 % (32.4-45.2); HEMOGLOBIN 11.8 GM/dL (10.7-15.3); LYMPH % 18.5 % (8-40); MCH 30.6 pg (25.7-33.7); MCHC 34.3 g/dl (32.0-36.0); MEAN CELL VOLUME 89.3 fl (80-96); MEAN PLT VOLUME 8.8 fl (7.5-11.1); MONO % 7.5 % (3.8-10.2); NEUT % 70.2 % (42.8-82.8); PLATELET COUNT 206 K/MM3 (134-434); RBC 3.86 M/mm3 (3.60-5.2); RDW 13.4 % (11.6-15.6); WHITE BLOOD COUNT 5.9 K/mm3 (4.0-10.0)
[2019-10-14 06:59] LABS: BLOOD UREA NITROGEN 34.4 mg/dL (7-18); CALCIUM 9.1 mg/dL (8.5-10.1); CREATININE 0.6 mg/dL (0.55-1.3); POTASSIUM 3.7 mmol/L (3.5-5.1)
[2019-10-14 07:00] LABS: CHOLESTEROL 200 mg/dL (50-200); HDL CHOLESTEROL 45 mg/dL (40-60); LDL CHOLESTEROL (ONLY SJRH) 129 mg/dL (5-100); TRIGLYCERIDES 144 mg/dL (0-150)
[2019-10-14] MEDS ORDERED: REGADENOSON 0.4 MG/5 ML PRE-FILLED SYRINGE IVPUSH ONE ×2 (10:10→10:30)
--- NOTE | 2019-10-14 10:14 | PN ---
Progress Note, Physician History of Present Illness: Spontaneous cardioversion to sinus rhythm with rate-control. Denies recurrent chest pain and palpitations. - Current Medication List Current Medications: Active Medications Apixaban (Eliquis -) 5 mg PO BID [facility] Last Admin: 10/13/19 21:37 Dose: 5 mg Atorvastatin Calcium (Lipitor -) 40 mg PO HS [facility] Last Admin: 10/13/19 21:38 Dose: Not Given Diltiazem HCl (Cardizem Cd -) 180 mg PO DAILY [facility] Last Admin: 10/13/19 10:51 Dose: 180 mg Metoprolol Succinate (Toprol Xl -) 50 mg PO DAILY [facility] Last Admin: 10/13/19 10:51 Dose: 50 mg Metoprolol Tartrate (Lopressor Injection -) 5 mg IVPUSH Q4H PRN PRN Reason: TACHYCARDIA - Objective Vital Signs: Vital Signs Temperature 97.9 F 10/14/19 06:00 Pulse Rate 50 L 10/14/19 06:00 Respiratory Rate 18 10/14/19 06:00 Blood Pressure 132/59 L 10/14/19 06:00 O2 Sat by Pulse Oximetry (%) 96 10/14/19 05:46 Constitutional: Yes: No Distress, Calm Neck: Yes: Supple Cardiovascular: Yes: Regular Rate and Rhythm Respiratory: Yes: Regular, CTA Bilaterally Gastrointestinal: Yes: Normal Bowel Sounds, Soft Edema: No Labs: CBC, BMP 10/14/19 05:50 10/14/19 05:50 INR, PTT INR 0.99 (0.83-1.09) 10/12/19 10:49 - ....Imaging EKG: Report Reviewed (Tele: NSR) Problem List - Problems (1) Hypertension Code(s): I10 - ESSENTIAL (PRIMARY) HYPERTENSION Qualifiers: Hypertension type: essential hypertension Qualified Code(s): I10 - Essential (primary) hypertension (2) Atrial fibrillation with rapid ventricular response Code(s): I48.91 - UNSPECIFIED ATRIAL FIBRILLATION (3) Chest pain Code(s): R07.9 - CHEST PAIN, UNSPECIFIED Qualifiers: Chest pain type: precordial pain Qualified Code(s): R07.2 - Precordial pain (4) Hyperlipidemia Code(s): E78.5 - HYPERLIPIDEMIA, UNSPECIFIED Qualifiers: Hyperlipidemia type: pure hypercholesterolemia Qualified Code(s): E78.00 - Pure hypercholesterolemia, unspecified; E78.0 - Pure hypercholesterolemia (5) Diastolic dysfunction Code(s): I51.89 - OTHER ILL-DEFINED HEART DISEASES Assessment/Plan 01/20/2018 Echo: Normal LV and RV size and fxn, normal atrial sizes, tr MR and TR 10/15/2019 Lexiscan Myoview: No ischemia, LVEF 67% 1. Chest pain, palpitations referable to recurrent paroxysmal atrial fibrillation -> NSR [id number] score of 3, currently on Eliquis therapy 2. Diastolic LV dysfunction with class 0 NYHA classification LV failure 3. Hypertension 4. Hypercholesterolemia 5. History of Breast carcinoma 6. Advanced degenerative joint disease PLAN: 1. Continue Toprol XL 50 qd and Cardizem CD 180 qd with IV Lopressor as needed for rate-control 2. Continue Eliquis 5 bid due to elevated risk score 3. Continue Lipitor 40 qhs 4. Stress test negative for ischemia 5. D/c planning with f/u with Dr. Jordan
[2019-10-14 10:57] VITALS: BP 181/78; PULSE 56; TEMP 97.5
--- NOTE | 2019-10-14 12:53 | EKG ---
Test Reason : Blood Pressure : / mmHG Vent. Rate : 055 BPM Atrial Rate : 055 BPM P-R Int : 160 ms QRS Dur : 092 ms QT Int : 464 ms P-R-T Axes : 036 008 043 degrees QTc Int : 443 ms SINUS BRADYCARDIA OTHERWISE NORMAL ECG WHEN COMPARED WITH ECG OF 12-OCT-2019 11:09, SINUS RHYTHM HAS REPLACED ATRIAL FIBRILLATION VENT. RATE HAS DECREASED BY 40 BPM Confirmed by SUSAN MARIN, ALBAN ([id number]) on 10/14/2019 12:53:16 PM Referred By: MECCA DE LA VEGA Confirmed By:ALBAN DAVIS MD
[2019-10-14] MEDS: APIXABAN 5 MG TABLET PO SCH (12:58)
--- NOTE | 2019-10-14 14:23 | PN ---
Progress Note, Physician History of Present Illness: Pt had stress test No Ischemic changes Afib got corrected - Current Medication List Current Medications: Active Medications Apixaban (Eliquis -) 5 mg PO BID [facility] Last Admin: 10/14/19 12:58 Dose: 5 mg Atorvastatin Calcium (Lipitor -) 40 mg PO HS [facility] Last Admin: 10/13/19 21:38 Dose: Not Given Diltiazem HCl (Cardizem Cd -) 180 mg PO DAILY [facility] Last Admin: 10/14/19 12:57 Dose: 180 mg Metoprolol Succinate (Toprol Xl -) 50 mg PO DAILY [facility] Last Admin: 10/14/19 12:58 Dose: 50 mg Metoprolol Tartrate (Lopressor Injection -) 5 mg IVPUSH Q4H PRN PRN Reason: TACHYCARDIA - Objective Vital Signs: Vital Signs Temperature 97.5 F L 10/14/19 10:00 Pulse Rate 56 L 10/14/19 10:00 Respiratory Rate 18 10/14/19 10:00 Blood Pressure 181/78 H 10/14/19 10:00 O2 Sat by Pulse Oximetry (%) 96 10/14/19 05:46 Constitutional: Yes: Anxious Eyes: Yes: Conjunctiva Clear, EOM Intact HENT: Yes: Atraumatic, Normocephalic Neck: Yes: Supple, Trachea Midline Cardiovascular: Yes: Regular Rate and Rhythm, S1, S2 Respiratory: Yes: Regular, CTA Bilaterally Gastrointestinal: Yes: Normal Bowel Sounds, Soft Musculoskeletal: Yes: Joint Stiffness Edema: Yes Edema: LLE: 1+, RLE: 1+ Peripheral Pulses WNL: Yes Labs: CBC, BMP 10/14/19 05:50 10/14/19 05:50 INR, PTT INR 0.99 (0.83-1.09) 10/12/19 10:49 Problem List - Problems (1) Atrial fibrillation with rapid ventricular response Code(s): I48.91 - UNSPECIFIED ATRIAL FIBRILLATION (2) Diastolic dysfunction Code(s): I51.89 - OTHER ILL-DEFINED HEART DISEASES (3) Hyperlipidemia Code(s): E78.5 - HYPERLIPIDEMIA, UNSPECIFIED Qualifiers: Hyperlipidemia type: pure hypercholesterolemia Qualified Code(s): E78.00 - Pure hypercholesterolemia, unspecified; E78.0 - Pure hypercholesterolemia (4) Hypertension Code(s): I10 - ESSENTIAL (PRIMARY) HYPERTENSION Qualifiers: Hypertension type: essential hypertension Qualified Code(s): I10 - Essential (primary) hypertension (5) Arthritis of knee, left Code(s): M17.12 - UNILATERAL PRIMARY OSTEOARTHRITIS, LEFT KNEE (6) Chest pain Code(s): R07.9 - CHEST PAIN, UNSPECIFIED Qualifiers: Chest pain type: precordial pain Qualified Code(s): R07.2 - Precordial pain Assessment/Plan (1) Atrial fibrillation with rapid ventricular response Code(s): I48.91 - UNSPECIFIED ATRIAL FIBRILLATION (2) Diastolic dysfunction Code(s): I51.89 - OTHER ILL-DEFINED HEART DISEASES (3) Hyperlipidemia Code(s): E78.5 - HYPERLIPIDEMIA, UNSPECIFIED Qualifiers: Hyperlipidemia type: pure hypercholesterolemia Qualified Code(s): E78.00 - Pure hypercholesterolemia, unspecified; E78.0 - Pure hypercholesterolemia (4) Hypertension Code(s): I10 - ESSENTIAL (PRIMARY) HYPERTENSION Qualifiers: Hypertension type: essential hypertension Qualified Code(s): I10 - Essential (primary) hypertension (5) Arthritis of knee, left Code(s): M17.12 - UNILATERAL PRIMARY OSTEOARTHRITIS, LEFT KNEE (6) Chest pain Code(s): R07.9 - CHEST PAIN, UNSPECIFIED Qualifiers: Chest pain type: precordial pain Qualified Code(s): R07.2 - Precordial pain stress test Negative 01/20/2018 Echo: Normal LV and RV size and fxn, normal atrial sizes, tr MR and TR 10/15/2019 Lexiscan Myoview: No ischemia, LVEF 67% 1. Chest pain, palpitations referable to recurrent paroxysmal atrial fibrillation -> NSR [id number] score of 3, currently on Eliquis therapy 2. Diastolic LV dysfunction with class 0 NYHA classification LV failure 3. Hypertension 4. Hypercholesterolemia 5. History of Breast carcinoma 6. Advanced degenerative joint disease PLAN: 1. Continue Toprol XL 50 qd and Cardizem CD 180 qd with IV Lopressor as needed for rate-control 2. Continue Eliquis 5 bid due to elevated risk score 3. Continue Lipitor 40 qhs 4. Stress test negative for ischemia 5. D/c planning with f/u with Dr. Jordan
--- NOTE | 2019-10-14 14:29 | DS ---
Physical Examination Vital Signs: Vital Signs Temperature 97.5 F L 10/14/19 10:00 Pulse Rate 56 L 10/14/19 10:00 Respiratory Rate 18 10/14/19 10:00 Blood Pressure 181/78 H 10/14/19 10:00 O2 Sat by Pulse Oximetry (%) 96 10/14/19 05:46 Constitutional: Yes: Anxious Eyes: Yes: Conjunctiva Clear, EOM Intact HENT: Yes: Atraumatic, Normocephalic Neck: Yes: Supple, Trachea Midline Cardiovascular: Yes: Regular Rate and Rhythm, S1, S2 Respiratory: Yes: Regular, CTA Bilaterally Gastrointestinal: Yes: Normal Bowel Sounds, Soft Breast(s): Yes: Other (H/O Breast Ca) Edema: Yes Edema: LLE: 1+, RLE: 1+ Peripheral Pulses WNL: Yes Labs: CBC, BMP 10/14/19 05:50 10/14/19 05:50 Discharge Summary Problems reviewed: Yes Reason For Visit: ATRIAL FIBRILLATION WITH RAPID VENTRICULAR RESPONS Current Active Problems Atrial fibrillation with rapid ventricular response (Acute) Atypical chest pain (Acute) Diastolic dysfunction (Acute) Hyperlipidemia (Acute) Hypertension (Acute) Condition: Fair - Instructions Referrals: Alfredo Krishnamurthy MD [Staff Physician] - Disposition: HOME - Home Medications Comprehensive Discharge Medication List: Ambulatory Orders Aspirin [ASA -] 81 mg PO DAILY #30 tab.chew 01/20/18 Atorvastatin Ca [Lipitor] 40 mg PO HS #30 tablet 01/20/18 Diltiazem Cd [Cardizem Cd -] 180 mg PO DAILY #30 cap.cd.24h 01/20/18 Metoprolol Succinate [Toprol XL -] 50 mg PO DAILY #30 tab.sr.24h 01/20/18
== END 2019-10-14 17:06 | disposition home or self-care (01) | DRG 309 ==
LOC: JER 09:46 → JERBED 14:20 → J4W 16:10
PROVIDERS: ADMIT Internal Medicine; ATTEND Internal Medicine
DX: I48.0 Paroxysmal atrial fibrillation (principal); I50.30 Unspecified diastolic (congestive) heart failure; E78.5 Hyperlipidemia, unspecified; I11.0 Hypertensive heart disease with heart failure; R07.2 Precordial pain; I25.10 Atherosclerotic heart disease of native coronary artery without angina pectoris; M17.12 Unilateral primary osteoarthritis, left knee; Z87.442 Personal history of urinary calculi; Z85.3 Personal history of malignant neoplasm of breast; Z88.0 Allergy status to penicillin
CPT/HCPCS: 36415; 71045-TC-FY; 78452-TC; 80048; 80053; 80061; 82550; 83036; 83721; 83735; 84439; 84484; 85025; 85610; 85730; 93005; 93010; 93017; 93971-TC; 99285-25; A9502; C1887; J2785

== ENCOUNTER 2020-06-06 10:58 | Emergency (ER) | payer OTHER ==
[2020-06-06 11:09] VITALS: TEMP 98.2; BMI 29.0
--- NOTE | 2020-06-06 11:49 | PDOC ---
History of Present Illness - General Chief Complaint: Pain Stated Complaint: HIP /LEG PAIN Time Seen by Provider: 06/06/20 11:38 History Source: Patient Exam Limitations: No Limitations - History of Present Illness Initial Comments: 06/06/20 13:57 80-year-old female history of A. fib along with hip necrosis along with hypertension, arthritis of her left knee, dyslipidemia, and breast cancer with complaints of right hip pain along with nausea. Patient states pain has been present for the past 2 days and now is associated with nausea and mild chest pressure. Is this a multiple visit Asthma Patient?: No Timing/Duration: 24 hours Severity: moderate (right hip/thigh) Associated Symptoms: reports: chest pain (pressure), nausea/vomiting (nausea) Past History - Travel History Traveled outside of the country in the last 30 days: No Close contact w/someone who was outside of country & ill: No - Medical History Allergies/Adverse Reactions: Allergies Allergy/AdvReac Type Severity Reaction Status Date / Time Penicillins Allergy Intermediate Rash Verified 06/06/20 11:04 "RESISTANT TO ASNESTHESIA" AdvReac Severe Uncoded 06/06/20 11:04 Home Medications: Ambulatory Orders Aspirin [ASA -] 81 mg PO DAILY #30 tab.chew 01/20/18 Atorvastatin Ca [Lipitor] 40 mg PO HS #30 tablet 01/20/18 Diltiazem Cd [Cardizem Cd -] 180 mg PO DAILY #30 cap.cd.24h 01/20/18 Metoprolol Succinate [Toprol XL -] 50 mg PO DAILY #30 tab.sr.24h 01/20/18 Lidocaine 5% Patch [Lidoderm Patch -] 1 patch TP DAILY #7 patch 06/06/20 Anemia: No Asthma: No Cancer: No Cardiac Disorders: Yes (A.Fib) CVA: No COPD: No CHF: No Dementia: No Diabetes: No GI Disorders: No Disorders: Yes (H/O KIDNEY STONES) HTN: Yes Hypercholesterolemia: Yes Liver Disease: No Seizures: No Thyroid Disease: No - Surgical History Abdominal Surgery: No Appendectomy: No Cardiac Surgery: No Cholecystectomy: No Lung Surgery: No Neurologic Surgery: No Orthopedic Surgery: No - Immunization History Immunization Up to Date: No - Psycho-Social/Smoking History Patient Lives Alone: Yes Lives with/in: lives alone Smoking History: Never smoked Have you smoked in the past 12 months: No - Substance Abuse Hx (Audit-C & DAST Scrn) How often the patient has a drink containing alcohol: Never Score: In Men: 4 or > Positive; In Women: 3 or > Positive: 0 Screen Result (Pos requires Nsg. Audit-10AR): Negative In the last yr the pt used illegal drug/Rx for NonMed reason: No Score: Yes response is considered Positive: 0 Screen Result (Positive result requires Nsg. DAST-10): Negative Review of Systems - Review of Systems Able to Perform ROS?: Yes Constitutional: No: Symptoms Reported HEENTM: No: Symptoms Reported Respiratory: No: Symptoms reported Cardiac (ROS): Yes: Other ABD/GI: Yes: Nausea Musculoskeletal: Yes: Joint Pain, Muscle Pain Integumentary: No: Symptoms Reported Neurological: No: Symptoms reported Endocrine: No: Symptoms Reported *Physical Exam - Vital Signs Last Vital Signs Temp Pulse Resp BP Pulse Ox 98.2 F 90 20 195/79 H 96 06/06/20 11:05 06/06/20 11:05 06/06/20 11:05 06/06/20 11:05 06/06/20 11:05 - Physical Exam General Appearance: Yes: Nourished, Appropriately Dressed. No: Apparent Distress HEENT: positive: EOMI, MONICO. negative: Pale Conjunctivae Neck: positive: Supple. negative: Tender, Decreased range of motion Respiratory/Chest: positive: Lungs Clear, Normal Breath Sounds. negative: Chest Tender, Respiratory Distress, Accessory Muscle Use Cardiovascular: positive: Regular Rhythm, Regular Rate. negative: Murmur Gastrointestinal/Abdominal: positive: Soft. negative: Tenderness Musculoskeletal: negative: Vertebral Tenderness Extremity: positive: Normal Inspection, Normal Range of Motion, Tender (Right inguinal and right iliac crest and pelvic region no crepitus no deformity noted discomfort with movement) Integumentary: positive: Normal Color, Warm, Moist Neurologic: positive: Motor Strength 5/5 (Ambulatory with cane) Heart Score/ECG Review - ECG Intrepretation Rhythm: Regular Rhythm (Rate 72. Noted LVH otherwise no ST elevation or depression) ED Treatment Course - LABORATORY CBC & Chemistry Diagram: 06/06/20 12:20 06/06/20 12:20 - RADIOLOGY Radiology Studies Ordered: Category Date Time Status HIP & PELVIS-RIGHT [RAD] Stat Radiology 06/06/20 11:38 Ordered Medical Decision Making - Medical Decision Making 06/06/20 14:00 Chief complaint: Patient with right hip and pelvic pain along with right upper leg discomfort since yesterday. Patient also complaining of nausea since yesterday afternoon along with chest pressure intermittently for weeks. Patient with cardiac history along with hypertension and A. fib and did not take any of her medication this morning. Exam: Patient with elevated push blood pressure in triage repeated remains elevated. Patient with point tenderness to the right inguinal region along with her right iliac crest/pelvic region no crepitus no deformity full range of motion noted. Plan: Patient ordered for EKG cardiac monitoring chest x-ray, right hip and pelvic x-ray labs, urine and duplex of the lower extremity due to history of breast CA to rule out DVT 06/06/20 14:05 X-ray shows extensive osteoarthritic right hip changes with mild protrusion of acetabuli. Left hip shows minimal arthritic changes SI joints are patent. There are degenerative spine changes with slight scoliosis. There are pelvic phleboliths. Chest x-ray negative for acute pathology. Duplex of the right lower extremity shows no evidence of DVT but noted Bailey's cyst measuring 6 x 2.5 x 2.5 within the popliteal fossa. Patient ordered for Lopressor Motrin and 06/06/20 16:34 Laboratory Tests 06/06/20 06/06/20 06/06/20 12:20 12:20 12:20 WBC 14.7 H MPV 9.2 Neutrophils % (Manual) 87.1 H Band Neutrophils % 0.0 Lymphocytes % (Manual) 7.9 L Monocytes % (Manual) 3 L Platelet Estimate Normal Anisocytosis 1+ Microcytosis 1+ Sodium 139 Potassium 4.4 Carbon Dioxide 27 Anion Gap 8 BUN 20.7 H Est GFR (CKD-EPI)AfAm 81.27 Est GFR (CKD-EPI)NonAf 70.12 Random Glucose 112 H Calcium 9.3 Total Bilirubin 0.9 ALT 17 Alkaline Phosphatase 38 L Troponin I < 0.02 Total Protein 7.8 Albumin 4.0 Urine Nitrite Negative Urine Bilirubin Negative Urine Urobilinogen 1.0 Ur Leukocyte Esterase Trace Urine WBC (Auto) 48 Urine Bacteria (Auto) 825 06/06/20 16:35 Patient states moderate relief of discomfort. Patient's blood pressure remains elevated called pharmacy [facility] up to alcohol who confirmed dose of Cardizem 300 mg daily. Patient be given dose here. Patient requesting to go home despite the complaints of nausea and chest pressure patient will complete the AMA form and is completely aware of the possibilities by leaving AMA Discharge - Discharge Information Problems reviewed: Yes Clinical Impression/Diagnosis: Chest pain, Hip pain Condition: Stable Disposition: AGAINST MEDICAL ADVICE - Additional Discharge Information Prescriptions: Lidocaine 5% Patch [Lidoderm Patch -] 1 patch TP DAILY #7 patch - Follow up/Referral Referrals: Katie Johnson MD [Primary Care Provider] - - Patient Discharge Instructions - Post Discharge Activity
[2020-06-06] MEDS ORDERED: ONDANSETRON 4 MG/2 ML VIAL IVPUSH ONE (12:07)
[2020-06-06] MEDS ORDERED: ONDANSETRON *ODT* 4 MG TABLET SL ONE (13:03)
[2020-06-06] MEDS ORDERED: METOPROLOL TARTRATE 50 MG TABLET (FP) PO ONE (13:08)
[2020-06-06] MEDS ORDERED: ONDANSETRON *ODT* 4 MG TABLET ONE (13:11)
[2020-06-06] MEDS ORDERED: METOPROLOL TARTRATE 50 MG TABLET (FP) ONE (13:11)
[2020-06-06 13:28] LABS: EPI CELLS 28 /uL (0-25.1); HYALINE CASTS 4 /uL (0-3.1); URINE APPEARANCE CLOUDY; URINE BACTERIA 825 /uL (0-1359); URINE BILIRUBIN NEGATIVE (NEGATIVE); URINE COLOR YELLOW; URINE GLUCOSE (UA) NEGATIVE (NEGATIVE); URINE KETONE NEGATIVE (NEGATIVE); URINE LEUK ESTERASE TRACE (NEGATIVE); URINE NITRITE NEGATIVE (NEGATIVE); URINE PROTEIN 1+ (NEGATIVE); URINE RBC 12 /uL (0-23.9); URINE WBC 48 /uL (0-25.8)
[2020-06-06 13:37] LABS: HEMATOCRIT 39.9 % (32.4-45.2); HEMOGLOBIN 13.5 GM/dL (10.7-15.3); MCH 29.9 pg (25.7-33.7); MCHC 33.9 g/dl (32.0-36.0); MEAN CELL VOLUME 88.3 fl (80-96); MEAN PLT VOLUME 9.2 fl (7.5-11.1); PLATELET COUNT 189 K/MM3 (134-434); RBC 4.51 M/mm3 (3.60-5.2); RDW 14.3 % (11.6-15.6)
[2020-06-06] MEDS ORDERED: IBUPROFEN 600 MG TABLET (FP) PO ONE ×2 (14:03→14:04)
[2020-06-06 14:16] LABS: ALK PHOS 38 U/L (45-117); ANION GAP 8 MMOL/L (8-16); BILIRUBIN,TOTAL 0.9 mg/dL (0.2-1); BLOOD UREA NITROGEN 20.7 mg/dL (7-18); CALCIUM 9.3 mg/dL (8.5-10.1); CHLORIDE 105 mmol/L (98-107); CO2 27 mmol/L (21-32); CREATININE 0.8 mg/dL (0.55-1.3); GLUCOSE,RANDOM 112 mg/dL (74-106); POTASSIUM 4.4 mmol/L (3.5-5.1); SGOT/AST 33 U/L (15-37); SGPT/ALT 17 U/L (13-61); SODIUM 139 mmol/L (136-145); TOT PROT 7.8 g/dl (6.4-8.2)
[2020-06-06 15:05] LABS: ANISOCYTOSIS 1+; MACROCYTOSIS 0; PLATELET ESTIMATE NORMAL
[2020-06-06 15:07] LABS: WHITE BLOOD COUNT 14.7 K/mm3 (4.0-10.0)
--- NOTE | 2020-06-06 15:07 | EKG ---
Test Reason : Blood Pressure : / mmHG Vent. Rate : 072 BPM Atrial Rate : 072 BPM P-R Int : 134 ms QRS Dur : 092 ms QT Int : 400 ms P-R-T Axes : 031 002 062 degrees QTc Int : 438 ms POOR DATA QUALITY, INTERPRETATION MAY BE ADVERSELY AFFECTED NORMAL SINUS RHYTHM MINIMAL VOLTAGE CRITERIA FOR LVH, MAY BE NORMAL VARIANT BORDERLINE ECG WHEN COMPARED WITH ECG OF 14-OCT-2019 11:21, NO SIGNIFICANT CHANGE WAS FOUND Confirmed by Pravin Friedman MD ([id number]) on 06/06/2020 3:07:26 PM Referred By: Confirmed By:Pravin Friedman MD
[2020-06-06] MEDS ORDERED: LIDOCAINE 5% TOPICAL PATCH TP ONE (16:36)
[2020-06-06] MEDS ORDERED: LIDOCAINE 5% TOPICAL PATCH ONE (16:50)
[2020-06-06 17:12] VITALS: BP 173/73; PULSE 77
== END 2020-06-06 17:12 | disposition left against medical advice (07) ==
LOC: JER 10:58
DX: M25.551 Pain in right hip (principal); R11.0 Nausea
CPT/HCPCS: 36415; 71045-TC-FY; 73523-TC-FY; 80053; 81003; 82550; 84484; 85025; 93005; 93010; 93971-TC; 99285-25; Q0162

== ENCOUNTER 2020-12-07 15:19 | Emergency (ER) | payer OTHER ==
[2020-12-07 15:41] VITALS: BP 174/77; PULSE 86; TEMP 98.5; BMI 29.0
[2020-12-07] MEDS ORDERED: CLINDAMYCIN HCL 300 MG CAPSULE PO ONE (16:38)
[2020-12-07] MEDS ORDERED: SULFAMETHOXAZOLE/TRIMETHOPRIM 800MG/160MG D.S. TABLET PO ONE (16:38)
[2020-12-07] MEDS ORDERED: SULFAMETHOXAZOLE/TRIMETHOPRIM 800MG/160MG D.S. TABLET ONE (16:45)
[2020-12-07] MEDS ORDERED: CLINDAMYCIN HCL 150 MG CAPSULE (FP) ONE (16:45)
== END 2020-12-07 17:00 | disposition home or self-care (01) ==
LOC: JER 15:19
DX: S61.452A Open bite of left hand, initial encounter (principal); L03.114 Cellulitis of left upper limb
CPT/HCPCS: 99283-25

== ENCOUNTER 2020-12-09 16:23 | Emergency (ER) | payer OTHER ==
[2020-12-09 16:42] VITALS: BP 186/64; PULSE 78; TEMP 98.2; BMI 29.0
[2020-12-09] MEDS ORDERED: SODIUM CHLORIDE 1,000 ML IV STA (16:46)
== END 2020-12-09 18:00 | disposition home or self-care (01) ==
LOC: JER 16:23
PROC: 3E0337Z Introduction of Electrolytic and Water Balance Substance into Peripheral Vein, Percutaneous Approach (ICD-10-PCS; principal; 2020-12-09)
DX: S61.452D Open bite of left hand, subsequent encounter (principal)
CPT/HCPCS: 71046-TC-FY; 87070; 87077; 87205; 99285-25

== ENCOUNTER 2020-12-11 13:04 | Emergency (ER) | payer OTHER ==
[2020-12-11 13:19] VITALS: BP 155/89; PULSE 84; TEMP 98.2; BMI 29.0
[2020-12-11] MEDS ORDERED: KETOROLAC TROMETHAMINE 30 MG/1 ML VIAL IM ONE (13:26)
[2020-12-11] MEDS ORDERED: LIDOCAINE 5% TOPICAL PATCH TP ONE (13:26)
[2020-12-11] MEDS ORDERED: METHOCARBAMOL 500 MG TABLET PO ONE (13:26)
== END 2020-12-11 13:57 | disposition home or self-care (01) ==
LOC: JERFT 13:04
DX: Z48.00 Encounter for change or removal of nonsurgical wound dressing (principal)
CPT/HCPCS: 99283-25

== ENCOUNTER 2021-05-11 23:35 | Emergency (ER) | payer OTHER ==
[2021-05-11 23:59] VITALS: BP 187/78; PULSE 66; TEMP 97.8; BMI 29.9
== END 2021-05-12 00:18 | disposition home or self-care (01) ==
LOC: JER 23:35
DX: Z11.52 Encounter for screening for COVID-19 (principal)
CPT/HCPCS: 99283-25; C9803; U0003; U0005

== ENCOUNTER 2021-07-04 15:39 | Observation (INO) | payer OTHER ==
[2021-07-04 15:53] VITALS: BMI 29.0
[2021-07-04] MEDS ORDERED: ASPIRIN 325 MG TABLET PO ONE (16:37)
[2021-07-04] MEDS ORDERED: ASPIRIN 81 MG CHEWABLE TABLETS ONE (16:51)
[2021-07-04 17:43] LABS: BASO % 0.7 % (0-2.0); EOS % 1.1 % (0-4.5); HEMATOCRIT 34.4 % (32.4-45.2); HEMOGLOBIN 12.1 GM/dL (10.7-15.3); LYMPH % 11.8 % (8-40); MCH 30.8 pg (25.7-33.7); MCHC 35.1 g/dl (32.0-36.0); MEAN CELL VOLUME 87.8 fl (80-96); MEAN PLT VOLUME 7.8 fl (7.5-11.1); MONO % 6.4 % (3.8-10.2); PLATELET COUNT 230 10^3/uL (134-434); RBC 3.92 M/mm3 (3.60-5.2); RDW 14.8 % (11.6-15.6); WHITE BLOOD COUNT 7.1 K/mm3 (4.0-10.0)
[2021-07-04 17:51] LABS: INR 0.97 (0.83-1.09); PROTHROMBIN TIME (PATIENT) 11.8 SEC (9.7-13.0)
[2021-07-04 17:54] LABS: ACTIVATED PTT 29.9 SECONDS (25.2-36.5)
[2021-07-04 17:59] LABS: CHLORIDE 106 mmol/L (98-107); SODIUM 140 mmol/L (136-145)
[2021-07-04 18:04] LABS: ALBUMIN 3.5 g/dl (3.4-5.0); ANION GAP 8 MMOL/L (8-16); BLOOD UREA NITROGEN 23.7 mg/dL (7-18); CALCIUM 8.9 mg/dL (8.5-10.1); CO2 26 mmol/L (21-32); GLUCOSE,RANDOM 92 mg/dL (74-106)
[2021-07-04 18:07] LABS: CREATININE 0.6 mg/dL (0.55-1.3); SGOT/AST 10 U/L (15-37); SGPT/ALT 18 U/L (13-61)
[2021-07-04 18:08] LABS: BILIRUBIN,TOTAL 0.3 mg/dL (0.2-1); TOT PROT 6.8 g/dl (6.4-8.2)
[2021-07-04 18:10] LABS: ALK PHOS 38 U/L (45-117)
[2021-07-04 18:11] LABS: N-TERMINAL BNP 165.1 pg/ml (5-450)
[2021-07-05 05:26] VITALS: TEMP 97.9
[2021-07-05] MEDS ORDERED: ACETAMINOPHEN 325 MG TABLET (FP) PO ONE (06:27)
[2021-07-05] MEDS ORDERED: ACETAMINOPHEN 325 MG TABLET (FP) ONE (06:47)
[2021-07-05 09:31] LABS: BASO % 0.8 % (0-2.0); EOS % 1.4 % (0-4.5); HEMATOCRIT 34.5 % (32.4-45.2); HEMOGLOBIN 11.9 GM/dL (10.7-15.3); LYMPH % 12.1 % (8-40); MCH 30.5 pg (25.7-33.7); MCHC 34.4 g/dl (32.0-36.0); MEAN CELL VOLUME 88.6 fl (80-96); MEAN PLT VOLUME 7.9 fl (7.5-11.1); MONO % 6.6 % (3.8-10.2); NEUT % 79.1 % (42.8-82.8); PLATELET COUNT 215 10^3/uL (134-434); RDW 14.7 % (11.6-15.6); WHITE BLOOD COUNT 6.5 K/mm3 (4.0-10.0)
[2021-07-05 09:48] LABS: CHLORIDE 104 mmol/L (98-107); SODIUM 140 mmol/L (136-145)
[2021-07-05 09:52] LABS: ALBUMIN 3.4 g/dl (3.4-5.0); ANION GAP 4 MMOL/L (8-16); BLOOD UREA NITROGEN 14.6 mg/dL (7-18); CALCIUM 8.6 mg/dL (8.5-10.1); CO2 31 mmol/L (21-32); GLUCOSE,RANDOM 134 mg/dL (74-106)
[2021-07-05 09:55] LABS: CHOLESTEROL 267 mg/dL (50-200); CREATININE 0.6 mg/dL (0.55-1.3); SGOT/AST 11 U/L (15-37); SGPT/ALT 17 U/L (13-61); TRIGLYCERIDES 74 mg/dL (0-150)
[2021-07-05 09:56] LABS: BILIRUBIN,TOTAL 0.6 mg/dL (0.2-1); LDL CHOLESTEROL (ONLY SJRH) 169 mg/dL (5-100); TOT PROT 6.6 g/dl (6.4-8.2)
[2021-07-05] MEDS ORDERED: ASPIRIN 81 MG CHEWABLE TABLETS ONE (09:56)
[2021-07-05 09:58] LABS: ALK PHOS 37 U/L (45-117); HDL CHOLESTEROL 62 mg/dL (40-60)
[2021-07-05] MEDS ORDERED: ASPIRIN 81 MG CHEWABLE TABLETS PO SCH (10:00)
[2021-07-05] MEDS ORDERED: ATORVASTATIN CA 40 MG TABLET (FP) PO SCH ×3 (10:45→11:00)
[2021-07-05] MEDS ORDERED: REGADENOSON 0.4 MG/5 ML PRE-FILLED SYRINGE IVPUSH ONE ×2 (13:45)
[2021-07-05 17:52] VITALS: BP 153/83; PULSE 73
== END 2021-07-05 18:00 | disposition left against medical advice (07) ==
LOC: JER 15:39 → JERBED 16:15 → INTOOBSV 16:15
PROVIDERS: ADMIT Internal Medicine; ATTEND Internal Medicine
PROC: 3E033GC Introduction of Other Therapeutic Substance into Peripheral Vein, Percutaneous Approach (ICD-10-PCS; principal; 2021-07-04)
DX: I48.91 Unspecified atrial fibrillation (principal); E78.5 Hyperlipidemia, unspecified; N20.0 Calculus of kidney; Z85.3 Personal history of malignant neoplasm of breast; I10 Essential (primary) hypertension; Z96.641 Presence of right artificial hip joint; R07.89 Other chest pain; M19.90 Unspecified osteoarthritis, unspecified site; Z88.9 Allergy status to unspecified drugs, medicaments and biological substances; Z88.0 Allergy status to penicillin
CPT/HCPCS: 36415; 71045-TC-FY; 71275-TC; 78452-TC; 80053; 80061; 83735; 83880; 84443; 84484; 85025; 85610; 85730; 93005; 93010; 93017; 93306-TC; 93970-TC; 96374; 99285-25; A9502; C9803; G0378; J2785; Q9967; U0003; U0005

== ENCOUNTER 2021-08-08 15:57 | Emergency (ER) | payer OTHER ==
[2021-08-08 16:36] VITALS: PULSE 80; TEMP 98.1; BMI 29.0
[2021-08-08] MEDS ORDERED: CLINDAMYCIN HCL 150 MG CAPSULE (FP) PO ONE (17:45)
[2021-08-08 18:52] LABS: BASO % 0.9 % (0-2.0); EOS % 1.7 % (0-4.5); HEMATOCRIT 35.3 % (32.4-45.2); HEMOGLOBIN 12.2 GM/dL (10.7-15.3); MCH 30.4 pg (25.7-33.7); MCHC 34.6 g/dl (32.0-36.0); MEAN PLT VOLUME 7.9 fl (7.5-11.1); MONO % 5.9 % (3.8-10.2); NEUT % 81.5 % (42.8-82.8); PLATELET COUNT 232 10^3/uL (134-434); RBC 4.01 M/mm3 (3.60-5.2); RDW 14.5 % (11.6-15.6); WHITE BLOOD COUNT 8.5 K/mm3 (4.0-10.0)
[2021-08-08 19:21] LABS: ALBUMIN 3.7 g/dl (3.4-5.0); BLOOD UREA NITROGEN 24.1 mg/dL (7-18)
[2021-08-08 19:24] LABS: CREATININE 0.8 mg/dL (0.55-1.3)
[2021-08-08 19:26] LABS: TOT PROT 7.4 g/dl (6.4-8.2)
[2021-08-08 19:37] LABS: BILIRUBIN,TOTAL 0.3 mg/dL (0.2-1)
[2021-08-08 20:16] VITALS: BP 170/86
== END 2021-08-08 20:17 | disposition home or self-care (01) ==
LOC: JER 15:57
DX: L03.115 Cellulitis of right lower limb (principal)
CPT/HCPCS: 36415; 73590-TC-RT-FY; 80053; 85025; 87040; 93005; 93010; 93970-TC; 99285-25

== ENCOUNTER 2023-05-26 06:17 | Day surgery (SDC) | payer OTHER ==
[2023-05-16 13:49] VITALS: BMI 29.0
[2023-05-26] MEDS ORDERED: LIDOCAINE HCL/PF 1% SDV 5ML VIAL ONE (07:34)
[2023-05-26] MEDS ORDERED: BUPIVACAINE HCL/EPINEPHRINE/PF 30 ML VIAL IJ ONE (07:35)
[2023-05-26] MEDS ORDERED: BSS (NA/CA/MG/K) BALANCED SALT SOLUTION OPHTH SOLN 15 ML BOTTLE ONE (07:35)
[2023-05-26] MEDS ORDERED: LIDOCAINE HCL/PF 2% SDV 5ML VIAL ONE (07:35)
[2023-05-26] MEDS ORDERED: BUPIVACAINE HCL/PF 0.25% (2.5MG/ML) 10 ML VIAL ONE (07:35)
[2023-05-26] MEDS ORDERED: POVIDONE-IODINE 5% OPHTHALMIC PREP 30 ML SOLUTION ONE (07:35)
[2023-05-26] MEDS ORDERED: LIDOCAINE HCL 1%, 10 MG/ML (20ML VIAL) ONE (07:35)
[2023-05-26] MEDS ORDERED: BACITRACIN ZINC 15 GM TUBE TOPICAL OINTMENT ONE (07:35)
[2023-05-26] MEDS ORDERED: LIDOCAINE 1%-EPI 1:100,000 30 ML MDV IJ ONE (07:36)
[2023-05-26] MEDS ORDERED: BUPIVACAINE HCL/PF 0.5% (5MG/ML) 10 ML VIAL ONE (07:36)
[2023-05-26] MEDS ORDERED: BUPIVACAINE HCL/PF 2.5 MG/ML - 30 ML VIAL IJ ONE (07:36)
[2023-05-26] MEDS ORDERED: PROPOFOL 20 ML ONE ×3 (07:55→09:18)
[2023-05-26] MEDS ORDERED: ONDANSETRON 4 MG/2 ML VIAL IVPUSH PRN (08:01)
[2023-05-26] MEDS ORDERED: LACTATED RINGERS SOLUTION 1,000 ML IV SCH (08:15)
[2023-05-26] MEDS ORDERED: BUPIVACAINE 0.25% /EPI 1:200,000 10 ML VIAL NR ONE ×2 (08:50)
[2023-05-26] MEDS ORDERED: ceFAZolin SODIUM 1 GM VIAL ONE (09:08)
[2023-05-26 10:33] VITALS: RESP 18; TEMP 97
[2023-05-26 11:00] VITALS: BP 138/58; PULSE 51
== END 2023-05-26 11:13 | disposition home or self-care (01) ==
LOC: FASU 06:17
PROVIDERS: ATTEND Plastic Surgery
PROC: 0HBCXZZ Excision of Left Upper Arm Skin, External Approach (ICD-10-PCS; 2023-05-26)
PROC: 0HB1XZX Excision of Face Skin, External Approach, Diagnostic (ICD-10-PCS; 2023-05-26)
PROC: 0HB1XZX Excision of Face Skin, External Approach, Diagnostic (ICD-10-PCS; principal; 2023-05-26 08:53)
PROC: 0HR1X73 Replacement of Face Skin with Autologous Tissue Substitute, Full Thickness, External Approach (ICD-10-PCS; 2023-05-26 08:53)
DX: C44.311 Basal cell carcinoma of skin of nose (principal)
CPT/HCPCS: 88305-TC; 94760

== ENCOUNTER 2023-08-07 11:11 | Inpatient (IN) | payer OTHER ==
[2023-08-07 12:25] LABS: BASO % 0.5 % (0-2.0); EOS % 4.2 % (0-4.5); HEMATOCRIT 38.9 % (32.4-45.2); HEMOGLOBIN 13.2 GM/dL (10.7-15.3); MCH 29.7 pg (25.7-33.7); MEAN CELL VOLUME 87.4 fl (80-96); MEAN PLT VOLUME 8.2 fl (7.5-11.1); MONO % 7.3 % (3.8-10.2); PLATELET COUNT 287 10^3/uL (134-434); RBC 4.46 M/mm3 (3.60-5.2); RDW 14.1 % (11.6-15.6); WHITE BLOOD COUNT 8.6 K/mm3 (4.0-10.0)
[2023-08-07 12:33] LABS: INR 1.1 (0.83-1.09); PROTHROMBIN TIME (PATIENT) 12.7 SEC (9.7-13.0)
[2023-08-07 12:35] LABS: ACTIVATED PTT 32.8 SECONDS (25.2-36.5)
[2023-08-07] MEDS ORDERED: dilTIAZem HCL 50 MG/10 ML - 10 ML VIAL IVPUSH ONE (12:47)
[2023-08-07 12:50] LABS: POTASSIUM 3.8 mmol/L (3.5-5.1)
[2023-08-07 12:52] LABS: ALBUMIN 3.6 g/dl (3.4-5.0); BLOOD UREA NITROGEN 15.2 mg/dL (7-18); CALCIUM 9.1 mg/dL (8.5-10.1)
[2023-08-07 12:55] LABS: CREATININE 0.7 mg/dL (0.55-1.3)
[2023-08-07 12:57] LABS: BILIRUBIN,TOTAL 0.4 mg/dL (0.2-1); TOT PROT 7.2 g/dl (6.4-8.2)
[2023-08-07] MEDS ORDERED: dilTIAZem HCL 125 MG/25 ML - 25 ML VIAL ONE (12:58)
[2023-08-07 13:00] LABS: N-TERMINAL BNP 297.6 pg/ml (5-450)
[2023-08-07 13:03] LABS: EPI CELLS 4 /uL (0-25.1); HYALINE CASTS 0 /uL (0-3.1); PH,URINE 6.5 (5.0-8.0); URINE APPEARANCE CLEAR; URINE BACTERIA 16 /uL (0-1359); URINE BILIRUBIN NEGATIVE (NEGATIVE); URINE COLOR YELLOW; URINE GLUCOSE (UA) NEGATIVE (NEGATIVE); URINE KETONE NEGATIVE (NEGATIVE); URINE LEUK ESTERASE TRACE (NEGATIVE); URINE NITRITE NEGATIVE (NEGATIVE); URINE PROTEIN TRACE (NEGATIVE); URINE RBC 16 /uL (0-23.9); URINE UROBILINOGEN 0.2 mg/dL (0.2-1.0); URINE WBC 8 /uL (0-25.8)
[2023-08-07] MEDS ORDERED: SULFAMETHOXAZOLE/TRIMETHOPRIM 800MG/160MG D.S. TABLET ONE (20:42)
[2023-08-07] MEDS: SULFAMETHOXAZOLE/TRIMETHOPRIM 800MG/160MG D.S. TABLET PO SCH (21:07)
[2023-08-07] MEDS: HEPARIN NA (PORCINE) 5,000 UNITS/ML 1ML VIAL SQ SCH (21:13)
[2023-08-08 08:55] LABS: BASO % 1.2 % (0-2.0); EOS % 3.9 % (0-4.5); HEMATOCRIT 35.3 % (32.4-45.2); HEMOGLOBIN 12.6 GM/dL (10.7-15.3); LYMPH % 10.9 % (8-40); MCH 30.8 pg (25.7-33.7); MCHC 35.7 g/dl (32.0-36.0); MEAN CELL VOLUME 86.3 fl (80-96); MONO % 6.8 % (3.8-10.2); NEUT % 77.2 % (42.8-82.8); PLATELET COUNT 273 10^3/uL (134-434); RBC 4.09 M/mm3 (3.60-5.2); RDW 14.2 % (11.6-15.6); WHITE BLOOD COUNT 8.1 K/mm3 (4.0-10.0)
[2023-08-08 09:12] LABS: POTASSIUM 3.6 mmol/L (3.5-5.1)
[2023-08-08 09:14] LABS: ALBUMIN 3.5 g/dl (3.4-5.0); BLOOD UREA NITROGEN 15.8 mg/dL (7-18); CALCIUM 8.8 mg/dL (8.5-10.1)
[2023-08-08 09:17] LABS: CREATININE 0.7 mg/dL (0.55-1.3)
[2023-08-08 09:19] LABS: BILIRUBIN,TOTAL 0.5 mg/dL (0.2-1); TOT PROT 6.8 g/dl (6.4-8.2)
[2023-08-08 09:33] LABS: N-TERMINAL BNP 2618.3 pg/ml (5-450)
[2023-08-08 09:36] LABS: ERYTHROCYTE SEDIMENTATION RATE 51 mm/hr (0-30)
[2023-08-08] MEDS: HEPARIN NA (PORCINE) 5,000 UNITS/ML 1ML VIAL SQ SCH ×2 (09:58→21:31)
[2023-08-08] MEDS: LACTOBACILLUS ACIDOPHILUS 1 TABLET PO SCH (09:58)
[2023-08-08] MEDS: EXEMESTANE 25 MG TABLET PO SCH (09:58)
[2023-08-08] MEDS: FUROSEMIDE 40 MG/4 ML INJECTABLE VIAL IVPUSH SCH (09:58)
[2023-08-08] MEDS: SULFAMETHOXAZOLE/TRIMETHOPRIM 800MG/160MG D.S. TABLET PO SCH ×2 (09:58→21:31)
[2023-08-08 17:51] VITALS: BMI 28.5
[2023-08-09 08:41] VITALS: RESP 18
[2023-08-09] MEDS: EXEMESTANE 25 MG TABLET PO SCH (09:00)
[2023-08-09] MEDS: LACTOBACILLUS ACIDOPHILUS 1 TABLET PO SCH (09:01)
[2023-08-09] MEDS: SULFAMETHOXAZOLE/TRIMETHOPRIM 800MG/160MG D.S. TABLET PO SCH (09:01)
[2023-08-09] MEDS: FUROSEMIDE 40 MG/4 ML INJECTABLE VIAL IVPUSH SCH (09:01)
[2023-08-09] MEDS: HEPARIN NA (PORCINE) 5,000 UNITS/ML 1ML VIAL SQ SCH (09:01)
[2023-08-09] MEDS ORDERED: metoPROLOL SUCCINATE 25 MG TAB.SR.24H (FP) PO SCH (10:00)
[2023-08-09 11:06] VITALS: BP 154/62; PULSE 71; TEMP 98
== END 2023-08-09 11:39 | disposition home health service (06) | DRG 308 ==
LOC: JER 11:11 → OBSVTOIN 14:21 → JERBED 14:21 → J4W 08-08 15:29
PROVIDERS: ADMIT Internal Medicine; ATTEND Internal Medicine
DX: I48.0 Paroxysmal atrial fibrillation (principal); I50.33 Acute on chronic diastolic (congestive) heart failure; I11.0 Hypertensive heart disease with heart failure; E78.5 Hyperlipidemia, unspecified; I25.10 Atherosclerotic heart disease of native coronary artery without angina pectoris; I87.2 Venous insufficiency (chronic) (peripheral)
CPT/HCPCS: 0241U-QW; 36415; 71045-TC-FY; 71275-TC; 80053; 80061; 81003; 82550; 83735; 83880; 84439; 84443; 84481; 84484; 85025; 85610; 85651; 85730; 86850; 86900; 86901; 87086; 87186; 93005; 93010; 93306-TC; 93971-TC; 99285-25; J1644; Q9967

== ENCOUNTER 2024-04-08 16:44 | Emergency (ER) | payer OTHER ==
[2024-04-08 16:54] VITALS: RESP 18; BMI 64.0
[2024-04-08] MEDS: SODIUM CHLORIDE 0.9% 500 ML INFUS.BAG IV ONE (18:35)
[2024-04-08 18:48] LABS: BASO % 0.5 % (0-2.0); HEMATOCRIT 29.1 % (32.4-45.2); HEMOGLOBIN 9.8 GM/dL (10.7-15.3); LYMPH % 14.9 % (8-40); MCH 28.1 pg (25.7-33.7); MCHC 33.6 g/dl (32.0-36.0); MEAN CELL VOLUME 83.5 fl (80-96); MEAN PLT VOLUME 7.9 fl (7.5-11.1); MONO % 6.8 % (3.8-10.2); NEUT % 76.8 % (42.8-82.8); PLATELET COUNT 250 10^3/uL (134-434); RBC 3.48 M/mm3 (3.60-5.2); RDW 14.5 % (11.6-15.6); WHITE BLOOD COUNT 8.9 K/mm3 (4.0-10.0)
[2024-04-08 18:59] LABS: EPI CELLS 4 /uL (0-25.1); HYALINE CASTS 0 /uL (0-3.1); PH,URINE 6.5 (5.0-8.0); URINE APPEARANCE CLEAR; URINE BACTERIA 13 /uL (0-1359); URINE BILIRUBIN NEGATIVE (NEGATIVE); URINE COLOR YELLOW; URINE GLUCOSE (UA) NEGATIVE (NEGATIVE); URINE KETONE NEGATIVE (NEGATIVE); URINE LEUK ESTERASE 2+ (NEGATIVE); URINE NITRITE NEGATIVE (NEGATIVE); URINE PROTEIN NEGATIVE (NEGATIVE); URINE RBC 12 /uL (0-23.9); URINE UROBILINOGEN 0.2 mg/dL (0.2-1.0); URINE WBC 29 /uL (0-25.8)
[2024-04-08 19:15] LABS: ALBUMIN 3.7 g/dl (3.4-5.0); BLOOD UREA NITROGEN 22.2 mg/dL (7-18); CALCIUM 9.2 mg/dL (8.5-10.1); MAGNESIUM 2.3 mg/dL (1.8-2.4)
[2024-04-08 19:17] LABS: CREATININE 0.6 mg/dL (0.55-1.3)
[2024-04-08 19:19] LABS: BILIRUBIN,TOTAL 0.4 mg/dL (0.2-1); TOT PROT 6.8 g/dl (6.4-8.2)
[2024-04-08] MEDS: CEPHALEXIN MONOHYDRATE 500 MG CAPSULE (UD) PO ONE (19:56)
[2024-04-08] MEDS ORDERED: SULFAMETHOXAZOLE/TRIMETHOPRIM 800MG/160MG D.S. TABLET ONE (20:05)
[2024-04-08] MEDS: SULFAMETHOXAZOLE/TRIMETHOPRIM 800MG/160MG D.S. TABLET PO ONE (20:07)
[2024-04-08 22:03] VITALS: BP 132/76; PULSE 68; TEMP 98.2
== END 2024-04-08 22:04 | disposition home or self-care (01) ==
LOC: JER 16:44
DX: N39.0 Urinary tract infection, site not specified (principal); R53.81 Other malaise; R19.5 Other fecal abnormalities; R51.9 Headache, unspecified; R07.89 Other chest pain; R11.0 Nausea; Z20.822 Contact with and (suspected) exposure to COVID-19
CPT/HCPCS: 0241U-QW; 36415; 71046-TC-FY; 80053; 81003; 82272; 83735; 84484; 85025; 87086; 93005; 93010; 99285-25

== ENCOUNTER 2024-05-28 04:38 | Day surgery (SDC) | payer OTHER ==
[2024-05-24 10:07] VITALS: BMI 28.4
[2024-05-28 09:27] VITALS: TEMP 98
[2024-05-28 10:03] VITALS: PULSE 69
[2024-05-28 10:07] VITALS: BP 157/57; RESP 15
== END 2024-05-28 10:42 | disposition home or self-care (01) ==
LOC: JASU-ENDO 04:38
PROVIDERS: ATTEND Student in an Organized Health Care Education/Training Program
PROC: 0DB78ZX Excision of Stomach, Pylorus, Via Natural or Artificial Opening Endoscopic, Diagnostic (ICD-10-PCS; 2024-05-28)
PROC: 0DBL8ZX Excision of Transverse Colon, Via Natural or Artificial Opening Endoscopic, Diagnostic (ICD-10-PCS; 2024-05-28)
PROC: 0DB68ZX Excision of Stomach, Via Natural or Artificial Opening Endoscopic, Diagnostic (ICD-10-PCS; principal; 2024-05-28 08:45)
DX: Z12.11 Encounter for screening for malignant neoplasm of colon (principal); D12.3 Benign neoplasm of transverse colon; K57.30 Diverticulosis of large intestine without perforation or abscess without bleeding; K29.50 Unspecified chronic gastritis without bleeding
CPT/HCPCS: 88305-TC; 88342-TC

== ENCOUNTER 2024-07-15 11:41 | Observation (INO) | payer OTHER ==
[2024-07-15 11:52] VITALS: BMI 26.7
[2024-07-15 13:37] LABS: BASO % 0.5 % (0-2.0); EOS % 1.7 % (0-4.5); HEMATOCRIT 19.1 % (32.4-45.2); MCH 21.7 pg (25.7-33.7); MCHC 30.9 g/dl (32.0-36.0); MEAN CELL VOLUME 70.2 fl (80-96); MEAN PLT VOLUME 7.7 fl (7.5-11.1); MONO % 6.9 % (3.8-10.2); NEUT % 79.9 % (42.8-82.8); PLATELET COUNT 284 10^3/uL (134-434); RBC 2.73 M/mm3 (3.60-5.2); WHITE BLOOD COUNT 6.2 K/mm3 (4.0-10.0)
[2024-07-15 13:43] LABS: HEMOGLOBIN 5.9 GM/dL (10.7-15.3); INR 1.83 (0.83-1.09); PROTHROMBIN TIME (PATIENT) 20.7 SEC (9.7-13.0)
[2024-07-15 14:10] LABS: POTASSIUM 4.4 mmol/L (3.5-5.1)
[2024-07-15 14:12] LABS: CALCIUM 9.2 mg/dL (8.5-10.1)
[2024-07-15 14:13] LABS: ALBUMIN 3.5 g/dl (3.4-5.0); BLOOD UREA NITROGEN 31.5 mg/dL (7-18)
[2024-07-15 14:17] LABS: CREATININE 0.9 mg/dL (0.55-1.3)
[2024-07-15 14:18] LABS: TOT PROT 6.6 g/dl (6.4-8.2)
[2024-07-15 14:19] LABS: BILIRUBIN,TOTAL 0.4 mg/dL (0.2-1)
[2024-07-15 14:36] LABS: ANISOCYTOSIS 1+; MACROCYTOSIS 0
[2024-07-15] MEDS ORDERED: ACETAMINOPHEN INJECTION 100 ML ONE (22:38)
[2024-07-15] MEDS: ACETAMINOPHEN 1000 MG/100 ML BAG IVPB PRN (22:42)
[2024-07-16] MEDS ORDERED: IBANDRONATE SODIUM 150 MG PO SCH (10:00)
[2024-07-16 10:36] LABS: BASO % 1.4 % (0-2.0); EOS % 1.8 % (0-4.5); HEMATOCRIT 25.4 % (32.4-45.2); HEMOGLOBIN 8.3 GM/dL (10.7-15.3); LYMPH % 13.4 % (8-40); MCH 24.2 pg (25.7-33.7); MCHC 32.6 g/dl (32.0-36.0); MEAN CELL VOLUME 74.2 fl (80-96); MEAN PLT VOLUME 7.7 fl (7.5-11.1); MONO % 8.1 % (3.8-10.2); NEUT % 75.3 % (42.8-82.8); PLATELET COUNT 267 10^3/uL (134-434); RBC 3.42 M/mm3 (3.60-5.2); RDW 19.5 % (11.6-15.6); WHITE BLOOD COUNT 6.3 K/mm3 (4.0-10.0)
[2024-07-16 10:58] LABS: POTASSIUM 3.8 mmol/L (3.5-5.1)
[2024-07-16 11:00] LABS: BLOOD UREA NITROGEN 17.8 mg/dL (7-18)
[2024-07-16 11:03] LABS: CREATININE 0.7 mg/dL (0.55-1.3)
[2024-07-16] MEDS ORDERED: ACETAMINOPHEN 325 MG TABLET (FP) PO PRN (11:16)
[2024-07-16 11:34] VITALS: BP 168/59; PULSE 72; RESP 20; TEMP 98.2
[2024-07-16] MEDS: FAMOTIDINE 20 MG TABLET PO SCH (11:46)
[2024-07-16] MEDS: VALSARTAN 160 MG TABLET PO SCH (11:46)
[2024-07-16] MEDS: EXEMESTANE 25 MG TABLET PO SCH (11:46)
[2024-07-16 12:40] LABS: HIV INTERPRETATION NEGATIVE (NEGATIVE)
== END 2024-07-16 13:26 | disposition home or self-care (01) ==
LOC: JER 11:41 → UNDOADMOB 16:32 → JERBED 16:32 → OBSVTOIN 16:39 → INTOOBSV 16:39 → JERBED 07-16 01:25 → J7W 07-16 01:25 → JERBED 07-16 11:23 → J7W 07-16 11:23
PROVIDERS: ADMIT Internal Medicine; ATTEND Internal Medicine
PROC: 30233N1 Transfusion of Nonautologous Red Blood Cells into Peripheral Vein, Percutaneous Approach (ICD-10-PCS; principal; 2024-07-16)
PROC: 3E033NZ Introduction of Analgesics, Hypnotics, Sedatives into Peripheral Vein, Percutaneous Approach (ICD-10-PCS; 2024-07-16)
DX: D64.9 Anemia, unspecified (principal); K63.5 Polyp of colon; K57.90 Diverticulosis of intestine, part unspecified, without perforation or abscess without bleeding; I48.91 Unspecified atrial fibrillation; Z79.01 Long term (current) use of anticoagulants; Z85.3 Personal history of malignant neoplasm of breast; Z88.0 Allergy status to penicillin
CPT/HCPCS: 36415; 36430; 71046-TC-FY; 80048; 80053; 82272; 85025; 85610; 86803; 86850; 86900; 86901; 86922; 87389; 93005; 93010; 96374; 99285-25; G0378; J0131; P9058

== ENCOUNTER 2024-11-24 04:32 | Day surgery (SDC) | payer OTHER ==
[2024-11-23 12:11] VITALS: BMI 29.0
[2024-11-24 10:17] VITALS: TEMP 97.8
[2024-11-24 14:32] VITALS: RESP 18
[2024-11-24 15:16] VITALS: BP 155/54; PULSE 58
== END 2024-11-24 15:27 | disposition home or self-care (01) ==
LOC: JASU-ENDO 04:32
PROVIDERS: ATTEND Internal Medicine Gastroenterology
PROC: 0DBP8ZX Excision of Rectum, Via Natural or Artificial Opening Endoscopic, Diagnostic (ICD-10-PCS; 2024-11-24)
PROC: 0DDP8ZX Extraction of Rectum, Via Natural or Artificial Opening Endoscopic, Diagnostic (ICD-10-PCS; principal; 2024-11-24 08:30)
DX: C20 Malignant neoplasm of rectum (principal)
CPT/HCPCS: 88305-TC; 88341-TC; 88342-TC

== ENCOUNTER 2024-12-04 12:03 | Emergency (ER) | payer OTHER ==
[2024-12-04 12:32] VITALS: TEMP 98; BMI 28.2
[2024-12-04] MEDS: LACTATED RINGERS SOLUTION 1000 ML INFUS.BAG IV ONE (13:39)
[2024-12-04 13:42] LABS: BASO % 0.7 % (0-2.0); EOS % 1.1 % (0-4.5); HEMATOCRIT 41.4 % (32.4-45.2); HEMOGLOBIN 14.1 GM/dL (10.7-15.3); MCH 30.3 pg (25.7-33.7); MEAN PLT VOLUME 7.8 fl (7.5-11.1); MONO % 7.7 % (3.8-10.2); NEUT % 74.5 % (42.8-82.8); PLATELET COUNT 249 10^3/uL (134-434); RBC 4.65 M/mm3 (3.60-5.2); RDW 14.9 % (11.6-15.6); WHITE BLOOD COUNT 6.9 K/mm3 (4.0-10.0)
[2024-12-04 14:02] LABS: CALCIUM 9.3 mg/dL (8.5-10.1)
[2024-12-04 14:03] LABS: ALBUMIN 3.8 g/dl (3.4-5.0); BLOOD UREA NITROGEN 25.2 mg/dL (7-18)
[2024-12-04 14:06] LABS: CREATININE 0.8 mg/dL (0.55-1.3)
[2024-12-04 14:07] LABS: BILIRUBIN,TOTAL 0.5 mg/dL (0.2-1); TOT PROT 6.8 g/dl (6.4-8.2)
[2024-12-04 15:57] VITALS: BP 123/56; PULSE 90; RESP 18
== END 2024-12-04 17:43 | disposition home or self-care (01) ==
LOC: JER 12:03
DX: I48.91 Unspecified atrial fibrillation (principal); R19.7 Diarrhea, unspecified; Z20.822 Contact with and (suspected) exposure to COVID-19
CPT/HCPCS: 0241U-QW; 36415; 71046-TC-FY; 80053; 84484; 85025; 93005; 93010; 99285-25

== ENCOUNTER 2025-02-13 00:07 | Inpatient (IN) | payer OTHER ==
[2025-02-13] MEDS ORDERED: METOPROLOL TARTRATE 5 MG/5 ML VIAL ONE (01:10)
[2025-02-13 01:23] LABS: HEMATOCRIT 32.9 % (34.1-44.9); MCHC 33.4 g/dl (32.2-35.5); MEAN CELL VOLUME 95.6 fl (79.4-94.8); MEAN PLT VOLUME 10.1 fl (9.4-12.3); PLATELET COUNT 157 x10^3/uL (182-369)
[2025-02-13] MEDS: METOPROLOL TARTRATE 5 MG/5 ML VIAL IVPUSH ONE (01:26)
[2025-02-13] MEDS: SODIUM CHLORIDE 0.9% 500 ML INFUS.BAG IV ONE (01:27)
[2025-02-13 01:36] LABS: INR 1.11 (0.83-1.09); PROTHROMBIN TIME (PATIENT) 12.2 SEC (9.7-13.0)
[2025-02-13 01:38] LABS: ACTIVATED PTT 39.9 SECONDS (25.2-36.5)
[2025-02-13] MEDS ORDERED: METOPROLOL TARTRATE 25 MG TABLET (FP) ONE (01:46)
[2025-02-13] MEDS: METOPROLOL TARTRATE 25 MG TABLET (FP) PO ONE (01:49)
[2025-02-13 01:59] LABS: POTASSIUM 3.4 mmol/L (3.5-5.1)
[2025-02-13 02:00] LABS: CALCIUM 9.8 mg/dL (8.5-10.1)
[2025-02-13 02:01] LABS: ALBUMIN 3.7 g/dl (3.4-5.0); BLOOD UREA NITROGEN 22.6 mg/dL (7-18); MAGNESIUM 1.7 mg/dL (1.8-2.4)
[2025-02-13 02:04] LABS: CREATININE 0.7 mg/dL (0.55-1.3)
[2025-02-13 02:06] LABS: BILIRUBIN,TOTAL 0.6 mg/dL (0.2-1); TOT PROT 6.6 g/dl (6.4-8.2)
[2025-02-13] MEDS: MAGNESIUM SULFATE IN WATER 2 GM/50 ML IVPB IVPB ONE (03:33)
[2025-02-13] MEDS: POTASSIUM CHLORIDE TABS 20 MEQ TABLET.ER (FP) PO ONE (03:33)
[2025-02-13 05:09] VITALS: BMI 27.3
[2025-02-13 06:50] LABS: MCHC 33.3 g/dl (32.2-35.5); MEAN CELL VOLUME 96.5 fl (79.4-94.8); PLATELET COUNT 173 x10^3/uL (182-369); RDW 17.2 % (12.5-17.0)
[2025-02-13 07:08] LABS: POTASSIUM 4.1 mmol/L (3.5-5.1)
[2025-02-13 07:11] LABS: ALBUMIN 3.2 g/dl (3.4-5.0); BLOOD UREA NITROGEN 19.6 mg/dL (7-18); MAGNESIUM 2.4 mg/dL (1.8-2.4)
[2025-02-13 07:14] LABS: CREATININE 0.7 mg/dL (0.55-1.3); PHOSPHOROUS 4.4 mg/dL (2.5-4.9)
[2025-02-13 07:16] LABS: BILIRUBIN,TOTAL 0.4 mg/dL (0.2-1); TOT PROT 5.9 g/dl (6.4-8.2)
[2025-02-13] MEDS: ACETAMINOPHEN 1000 MG/100 ML BAG IVPB ONE (07:30)
[2025-02-13] MEDS: metoPROLOL SUCCINATE 25 MG TAB.SR.24H (FP) PO SCH (09:02)
[2025-02-13] MEDS: EXEMESTANE 25 MG TABLET PO SCH (10:00)
[2025-02-13] MEDS: ENOXAPARIN NA (PORCINE) 60 MG/0.6 ML DISP.SYRIN SQ SCH (10:41)
[2025-02-13 16:33] LABS: HEMATOCRIT 30.8 % (34.1-44.9); HEMOGLOBIN 10.2 g/dL (11.2-15.7); MCHC 33.1 g/dl (32.2-35.5); MEAN CELL VOLUME 96.6 fl (79.4-94.8); MEAN PLT VOLUME 10.2 fl (9.4-12.3); PLATELET COUNT 199 x10^3/uL (182-369); RDW 17.5 % (12.5-17.0)
[2025-02-14 07:27] LABS: HEMATOCRIT 30.3 % (34.1-44.9); MEAN CELL VOLUME 96.2 fl (79.4-94.8); MEAN PLT VOLUME 10.3 fl (9.4-12.3); PLATELET COUNT 159 x10^3/uL (182-369); RDW 17.5 % (12.5-17.0)
[2025-02-14 07:28] LABS: POTASSIUM 3.6 mmol/L (3.5-5.1)
[2025-02-14 07:35] LABS: ALBUMIN 3.1 g/dl (3.4-5.0); BLOOD UREA NITROGEN 15.6 mg/dL (7-18); CALCIUM 9.1 mg/dL (8.5-10.1); MAGNESIUM 1.9 mg/dL (1.8-2.4)
[2025-02-14 07:39] LABS: BILIRUBIN,TOTAL 0.5 mg/dL (0.2-1); CREATININE 0.6 mg/dL (0.55-1.3); TOT PROT 5.7 g/dl (6.4-8.2)
[2025-02-14] MEDS: FERROUS GLUCONATE 324 MG TAB (FP) PO SCH (08:15)
[2025-02-14] MEDS: POTASSIUM CHLORIDE ORAL LIQUID 20 MEQ/15 ML PO ONE (12:58)
[2025-02-14] MEDS: MAGNESIUM OXIDE 400 MG TABLET (FP) PO SCH (12:58)
[2025-02-14 13:52] VITALS: RESP 16
[2025-02-14 13:54] VITALS: TEMP 97.9
[2025-02-14] MEDS: POTASSIUM CHLORIDE TABS 20 MEQ TABLET.ER (FP) PO ONE (14:36)
[2025-02-14 15:18] VITALS: BP 108/65; PULSE 96
== END 2025-02-14 16:45 | disposition short-term general hospital (02) | DRG 309 ==
LOC: JER 00:07 → JERBED 02:24 → OBSVTOIN 02:55 → J4S 04:11
PROVIDERS: ADMIT Internal Medicine; ATTEND Physician Assistant
DX: I48.91 Unspecified atrial fibrillation (principal); C20 Malignant neoplasm of rectum; I24.89 Other forms of acute ischemic heart disease; D50.9 Iron deficiency anemia, unspecified; I25.10 Atherosclerotic heart disease of native coronary artery without angina pectoris; D69.6 Thrombocytopenia, unspecified; E87.6 Hypokalemia; E83.42 Hypomagnesemia
CPT/HCPCS: 36415; 71045-TC-FY; 80053; 83735; 84100; 84484; 85027; 85610; 85730; 86850; 86900; 86901; 93005; 93010; 93306-TC; 93970-TC; 97116-GP; 97161-GP; 99285-25; G0378